=== PATIENT | female | born 1940 | race African-American/Black ===

== ENCOUNTER 2018-12-15 15:06 | Inpatient (IN) | payer MEDICARE, OTHER ==
[~2018-12-15] VITALS: Ht 152.4 cm; Wt 91.9 kg
[2018-12-16] VITALS: BP 189/71
--- OUTSIDE RECORDS SUMMARY | 2018-12-16 19:49 | XMS REPORT ---
[facility] Address Unknown Phone Unavailable Care Team Providers Care Sap Hana Architect Name Role Phone Unavailable Unavailable Payers Payer Name Policy Type Policy Number Effective Date Expiration Date Problems This patient has no known problems. Allergies, Adverse Reactions, Alerts Allergy Name Allergy Type Status Severity Reaction(s) Onset Date Inactive Date Treating Clinician Comments PARVIN Inhibitors DA Active U 2018-11-23 00:00:00 codeine DA Active U 2018-11-23 00:00:00 benazepril DA Active U 2018-11-23 00:00:00 diphenhydramine DA Active U 2018-11-23 00:00:00 PARVIN Inhibitors DA Active U 2017-11-11 00:00:00 codeine DA Active U 2017-11-11 00:00:00 hydrocodone DA Active U 2017-11-11 00:00:00 aspirin DA Active U 2017-11-11 00:00:00 ibuprofen DA Active U 2017-11-11 00:00:00 benazepril DA Active U 2017-11-11 00:00:00 benztropine DA Active U 2017-11-11 00:00:00 diphenhydramine DA Active U 2017-11-11 00:00:00 HYDROZAMIDE DA Active U 2013-09-14 00:00:00 Medications This patient has no known medications. Results Test Description Test Time Test Comments Text Results Atomic Results Result Comments GLUBED 2018-12-12 11:27:00 GLUBED (test code=GLUBED) 167 MG/DL 70-110 Performed by certified hasher machine operator at [facility] CBC W/AUTO [id number] 09:09:00* Test Item Value Reference Range Comments WHITE BLOOD CELL (test code=WBC) 5.24 x10 3/uL 4.5-11.0 RED BLOOD CELL (test code=RBC) 3.53 x10 6/uL 3.54-5.02 HEMOGLOBIN (test code=HGB) 9.9 g/dL 11.0-15.0 HEMATOCRIT (test code=HCT) 32.0 % 33.0-45.0 MEAN CELL VOLUME (test code=MCV) 90.7 fL 81.0-99.0 MEAN CELL HGB (test code=MCH) 28.0 pg 27.0-33.0 MEAN CELL HGB CONCETRATION (test code=MCHC) 30.9 g/dL 33.0-37.0 RED CELL DISTRIBUTION WIDTH CV (test code=RDW) 13.8 % 11.5-14.5 RED CELL DISTRIBUTION WIDTH SD (test code=RDW-SD) 45.3 fL 37.0-54.0 PLATELET COUNT (test code=PLT) 108 x10 3/uL 150-400 MEAN PLATELET VOLUME (test code=MPV) 12.8 fL 7.0-9.0 NEUTROPHIL % (test code=NT%) 37.2 % 56.0-77.0 IMMATURE GRANULOCYTE % (test code=IG%) 0.4 % 0.0-2.0 LYMPHOCYTE % (test code=LY%) 44.5 % 14.0-32.0 MONOCYTE % (test code=MO%) 12.2 % 4.8-9.0 EOSINOPHIL % (test code=EO%) 5.3 % 0.3-3.7 BASOPHIL % (test code=BA%) 0.4 % 0.0-2.0 NUCLEATED RBC % (test code=NRBC%) 0.0 % 0-0 NEUTROPHIL # (test code=NT#) 1.95 x10 3/uL 2.0-7.6 IMMATURE GRANULOCYTE # (test code=IG#) 0.02 x10 3/uL 0.00-0.03 LYMPHOCYTE # (test code=LY#) 2.33 x10 3/uL 1.0-3.8 MONOCYTE # (test code=MO#) 0.64 x10 3/uL 0.1-0.8 EOSINOPHIL # (test code=EO#) 0.28 x10 3/uL 0.0-0.2 BASOPHIL # (test code=BA#) 0.02 x10 3/uL 0.0-0.2 NUCLEATED RBC # (test code=NRBC#) 0.00 x10 3/uL 0.0-0.1 MANUAL DIFF REQUIRED (test code=MDIFF) NO RENAL FUNCTION [id number] 08:42:00* Test Item Value Reference Range Comments SODIUM (test code=NA) 139 mEq/L 134-147 POTASSIUM (test code=K) 4.2 mEq/L 3.4-5.0 CHLORIDE (test code=CL) 102 mEq/L 100-108 CARBON DIOXIDE (test code=CO2) 32 mEq/L 21-33 ANION GAP (test code=GAP) 9 0-20 GLUCOSE (test code=GLU) 192 mg/dL 70-110 BLOOD UREA NITROGEN (test code=BUN) 43 mg/dL 7-18 GLOMERULAR FILTRATION RATE (test code=GFR) 11.0 70-80 Units of measure=ml/min/1.73 m2 CREATININE (test code=CREAT) 4.7 mg/dL 0.6-1.3 ALBUMIN (test code=ALB) 2.70 g/dL 3.4-5.0 CALCIUM (test code=CA) 8.5 mg/dL 8.0-10.5 PHOSPHOROUS (test code=PHOS) 3.7 mg/dL 2.5-4.9 [id number] 07:49:00* Test Item Value Reference Range Comments GLUBED (test code=GLUBED) 185 MG/DL 70-110 Performed by certified hasher machine operator at [facility] [id number] 23:18:00* Test Item Value Reference Range Comments GLUBED (test code=GLUBED) 194 MG/DL 70-110 Performed by certified hasher machine operator at [facility] [id number] 22:03:00* Test Item Value Reference Range Comments GLUBED (test code=GLUBED) 170 MG/DL 70-110 Performed by certified hasher machine operator at [facility] [id number] 16:50:00* Test Item Value Reference Range Comments GLUBED (test code=GLUBED) 147 MG/DL 70-110 Performed by certified hasher machine operator at [facility] [id number] 16:29:00* Test Item Value Reference Range Comments GLUBED (test code=GLUBED) 143 MG/DL 70-110 Performed by certified hasher machine operator at [facility] [id number] 12:36:00* Test Item Value Reference Range Comments GLUBED (test code=GLUBED) 158 MG/DL 70-110 Performed by certified hasher machine operator at [facility] [id number] 08:32:00* Test Item Value Reference Range Comments GLUBED (test code=GLUBED) 174 MG/DL 70-110 Performed by certified hasher machine operator at [facility] BASIC METABOLIC [id number] 08:14:00* Test Item Value Reference Range Comments SODIUM (test code=NA) 137 mEq/L 134-147 POTASSIUM (test code=K) 4.4 mEq/L 3.4-5.0 CHLORIDE (test code=CL) 101 mEq/L 100-108 CARBON DIOXIDE (test code=CO2) 28 mEq/L 21-33 ANION GAP (test code=GAP) 12 0-20 GLUCOSE (test code=GLU) 175 mg/dL 70-110 BLOOD UREA NITROGEN (test code=BUN) 32 mg/dL 7-18 GLOMERULAR FILTRATION RATE (test code=GFR) 17.1 70-80 Units of measure=ml/min/1.73 m2 CREATININE (test code=CREAT) 3.2 mg/dL 0.6-1.3 CALCIUM (test code=CA) 8.9 mg/dL 8.0-10.5 CBC W/AUTO [id number] 07:48:00* Test Item Value Reference Range Comments WHITE BLOOD CELL (test code=WBC) 6.78 x10 3/uL 4.5-11.0 RED BLOOD CELL (test code=RBC) 4.16 x10 6/uL 3.54-5.02 HEMOGLOBIN (test code=HGB) 11.6 g/dL 11.0-15.0 HEMATOCRIT (test code=HCT) 38.8 % 33.0-45.0 MEAN CELL VOLUME (test code=MCV) 93.3 fL 81.0-99.0 MEAN CELL HGB (test code=MCH) 27.9 pg 27.0-33.0 MEAN CELL HGB CONCETRATION (test code=MCHC) 29.9 g/dL 33.0-37.0 RED CELL DISTRIBUTION WIDTH CV (test code=RDW) 13.8 % 11.5-14.5 RED CELL DISTRIBUTION WIDTH SD (test code=RDW-SD) 47.2 fL 37.0-54.0 PLATELET COUNT (test code=PLT) 103 x10 3/uL 150-400 MEAN PLATELET VOLUME (test code=MPV) 12.3 fL 7.0-9.0 NEUTROPHIL % (test code=NT%) 49.8 % 56.0-77.0 IMMATURE GRANULOCYTE % (test code=IG%) 0.3 % 0.0-2.0 LYMPHOCYTE % (test code=LY%) 32.4 % 14.0-32.0 MONOCYTE % (test code=MO%) 14.2 % 4.8-9.0 EOSINOPHIL % (test code=EO%) 2.9 % 0.3-3.7 BASOPHIL % (test code=BA%) 0.4 % 0.0-2.0 NUCLEATED RBC % (test code=NRBC%) 0.0 % 0-0 NEUTROPHIL # (test code=NT#) 3.37 x10 3/uL 2.0-7.6 IMMATURE GRANULOCYTE # (test code=IG#) 0.02 x10 3/uL 0.00-0.03 LYMPHOCYTE # (test code=LY#) 2.20 x10 3/uL 1.0-3.8 MONOCYTE # (test code=MO#) 0.96 x10 3/uL 0.1-0.8 EOSINOPHIL # (test code=EO#) 0.20 x10 3/uL 0.0-0.2 BASOPHIL # (test code=BA#) 0.03 x10 3/uL 0.0-0.2 NUCLEATED RBC # (test code=NRBC#) 0.00 x10 3/uL 0.0-0.1 MANUAL DIFF REQUIRED (test code=MDIFF) NO PROTHROMBIN [id number] 06:52:00* Test Item Value Reference Range Comments PROTHROMBIN TIME PATIENT (test code=PTP) 16.1 SECONDS 9.3-12.9 INTERNATIONAL NORMAL RATIO (test code=INR) 1.4 0.8-1.2 TARGET INR BY INDICATION Indication INR1. Prophylaxis of venous thrombosis 2.0 - 3.0 (orthopedic surgery), Prophylaxis of venous thrombosis (other than high-risk surgery), Treatment of Deep Vein Thrombosis/Pulmonary Embolism, Prevention of systemic embolism - Tissue heart valves, Acute Myocardial Infarction (to prevent systemic embolism), Valvular heart disease, Atrial Fibrillation, Bileaflet mechanical valve in aortic position.2. Mechanical prosthetic valves (high risk), 2.5 - 3.5 Presence of Lupus Anticoagulant or Antiphospholipid Antibodies, Prevention of systemic embolism - Acute Myocardial Infarction (to prevent recurrent infarct). THROMBOPLASTIN TIME [id number] 06:52:00* Test Item Value Reference Range Comments THROMBOPLASTIN TIME PARTIAL (test code=PTT) 32.7 Seconds 25.0-39.5 Therapeutic Range: 50.4 - 88.3 Seconds Effective 09/09/2018 [id number] 22:41:00* Test Item Value Reference Range Comments GLUBED (test code=GLUBED) 160 MG/DL 70-110 Performed by certified hasher machine operator at [facility] [id number] 22:02:00* Test Item Value Reference Range Comments GLUBED (test code=GLUBED) 239 MG/DL 70-110 Performed by certified hasher machine operator at [facility] [id number] 17:42:00* Test Item Value Reference Range Comments GLUBED (test code=GLUBED) 165 MG/DL 70-110 Performed by certified hasher machine operator at [facility] CBC W/AUTO [id number] 09:25:00* Test Item Value Reference Range Comments WHITE BLOOD CELL (test code=WBC) 5.75 x10 3/uL 4.5-11.0 RED BLOOD CELL (test code=RBC) 3.81 x10 6/uL 3.54-5.02 HEMOGLOBIN (test code=HGB) 10.7 g/dL 11.0-15.0 HEMATOCRIT (test code=HCT) 34.9 % 33.0-45.0 MEAN CELL VOLUME (test code=MCV) 91.6 fL 81.0-99.0 MEAN CELL HGB (test code=MCH) 28.1 pg 27.0-33.0 MEAN CELL HGB CONCETRATION (test code=MCHC) 30.7 g/dL 33.0-37.0 RED CELL DISTRIBUTION WIDTH CV (test code=RDW) 13.7 % 11.5-14.5 RED CELL DISTRIBUTION WIDTH SD (test code=RDW-SD) 46.2 fL 37.0-54.0 PLATELET COUNT (test code=PLT) 102 x10 3/uL 150-400 MEAN PLATELET VOLUME (test code=MPV) 12.3 fL 7.0-9.0 NEUTROPHIL % (test code=NT%) 43.2 % 56.0-77.0 IMMATURE GRANULOCYTE % (test code=IG%) 0.2 % 0.0-2.0 LYMPHOCYTE % (test code=LY%) 40.0 % 14.0-32.0 MONOCYTE % (test code=MO%) 12.5 % 4.8-9.0 EOSINOPHIL % (test code=EO%) 3.8 % 0.3-3.7 BASOPHIL % (test code=BA%) 0.3 % 0.0-2.0 NUCLEATED RBC % (test code=NRBC%) 0.0 % 0-0 NEUTROPHIL # (test code=NT#) 2.48 x10 3/uL 2.0-7.6 IMMATURE GRANULOCYTE # (test code=IG#) 0.01 x10 3/uL 0.00-0.03 LYMPHOCYTE # (test code=LY#) 2.30 x10 3/uL 1.0-3.8 MONOCYTE # (test code=MO#) 0.72 x10 3/uL 0.1-0.8 EOSINOPHIL # (test code=EO#) 0.22 x10 3/uL 0.0-0.2 BASOPHIL # (test code=BA#) 0.02 x10 3/uL 0.0-0.2 NUCLEATED RBC # (test code=NRBC#) 0.00 x10 3/uL 0.0-0.1 MANUAL DIFF REQUIRED (test code=MDIFF) NO [id number] 08:48:00* Test Item Value Reference Range Comments GLUBED (test code=GLUBED) 165 MG/DL 70-110 Performed by certified hasher machine operator at [facility] RENAL FUNCTION [id number] 08:01:00* Test Item Value Reference Range Comments SODIUM (test code=NA) 140 mEq/L 134-147 POTASSIUM (test code=K) 4.5 mEq/L 3.4-5.0 CHLORIDE (test code=CL) 103 mEq/L 100-108 CARBON DIOXIDE (test code=CO2) 29 mEq/L 21-33 ANION GAP (test code=GAP) 13 0-20 GLUCOSE (test code=GLU) 176 mg/dL 70-110 BLOOD UREA NITROGEN (test code=BUN) 57 mg/dL 7-18 GLOMERULAR FILTRATION RATE (test code=GFR) 12.5 70-80 Units of measure=ml/min/1.73 m2 CREATININE (test code=CREAT) 4.2 mg/dL 0.6-1.3 ALBUMIN (test code=ALB) 2.60 g/dL 3.4-5.0 CALCIUM (test code=CA) 8.3 mg/dL 8.0-10.5 PHOSPHOROUS (test code=PHOS) 3.4 mg/dL 2.5-4.9 [id number] 16:33:00* Test Item Value Reference Range Comments GLUBED (test code=GLUBED) 268 MG/DL 70-110 Performed by certified hasher machine operator at [facility] [id number] 14:58:00* Test Item Value Reference Range Comments GLUBED (test code=GLUBED) 252 MG/DL 70-110 Performed by certified hasher machine operator at [facility] [id number] 12:20:00* Test Item Value Reference Range Comments GLUBED (test code=GLUBED) 253 MG/DL 70-110 Performed by certified hasher machine operator at [facility] [id number] 08:38:00* Test Item Value Reference Range Comments GLUBED (test code=GLUBED) 154 MG/DL 70-110 Performed by certified hasher machine operator at [facility] [id number] 20:43:00* Test Item Value Reference Range Comments GLUBED (test code=GLUBED) 242 MG/DL 70-110 Performed by certified hasher machine operator at [facility] [id number] 17:57:00* Test Item Value Reference Range Comments GLUBED (test code=GLUBED) 146 MG/DL 70-110 Performed by certified hasher machine operator at [facility] RENAL FUNCTION [id number] 08:58:00* Test Item Value Reference Range Comments SODIUM (test code=NA) 139 mEq/L 134-147 POTASSIUM (test code=K) 4.6 mEq/L 3.4-5.0 CHLORIDE (test code=CL) 106 mEq/L 100-108 CARBON DIOXIDE (test code=CO2) 28 mEq/L 21-33 ANION GAP (test code=GAP) 10 0-20 GLUCOSE (test code=GLU) 133 mg/dL 70-110 BLOOD UREA NITROGEN (test code=BUN) 70 mg/dL 7-18 GLOMERULAR FILTRATION RATE (test code=GFR) 12.8 70-80 Units of measure=ml/min/1.73 m2 CREATININE (test code=CREAT) 4.1 mg/dL 0.6-1.3 ALBUMIN (test code=ALB) 2.70 g/dL 3.4-5.0 CALCIUM (test code=CA) 8.6 mg/dL 8.0-10.5 PHOSPHOROUS (test code=PHOS) 3.5 mg/dL 2.5-4.9 CBC W/AUTO [id number] 07:17:00* Test Item Value Reference Range Comments WHITE BLOOD CELL (test code=WBC) 7.06 x10 3/uL 4.5-11.0 RED BLOOD CELL (test code=RBC) 4.04 x10 6/uL 3.54-5.02 HEMOGLOBIN (test code=HGB) 11.2 g/dL 11.0-15.0 HEMATOCRIT (test code=HCT) 37.0 % 33.0-45.0 MEAN CELL VOLUME (test code=MCV) 91.6 fL 81.0-99.0 MEAN CELL HGB (test code=MCH) 27.7 pg 27.0-33.0 MEAN CELL HGB CONCETRATION (test code=MCHC) 30.3 g/dL 33.0-37.0 RED CELL DISTRIBUTION WIDTH CV (test code=RDW) 13.8 % 11.5-14.5 RED CELL DISTRIBUTION WIDTH SD (test code=RDW-SD) 46.5 fL 37.0-54.0 PLATELET COUNT (test code=PLT) 114 x10 3/uL 150-400 MEAN PLATELET VOLUME (test code=MPV) 12.6 fL 7.0-9.0 NEUTROPHIL % (test code=NT%) 49.5 % 56.0-77.0 IMMATURE GRANULOCYTE % (test code=IG%) 0.1 % 0.0-2.0 LYMPHOCYTE % (test code=LY%) 34.4 % 14.0-32.0 MONOCYTE % (test code=MO%) 12.5 % 4.8-9.0 EOSINOPHIL % (test code=EO%) 3.1 % 0.3-3.7 BASOPHIL % (test code=BA%) 0.4 % 0.0-2.0 NUCLEATED RBC % (test code=NRBC%) 0.0 % 0-0 NEUTROPHIL # (test code=NT#) 3.49 x10 3/uL 2.0-7.6 IMMATURE GRANULOCYTE # (test code=IG#) 0.01 x10 3/uL 0.00-0.03 LYMPHOCYTE # (test code=LY#) 2.43 x10 3/uL 1.0-3.8 MONOCYTE # (test code=MO#) 0.88 x10 3/uL 0.1-0.8 EOSINOPHIL # (test code=EO#) 0.22 x10 3/uL 0.0-0.2 BASOPHIL # (test code=BA#) 0.03 x10 3/uL 0.0-0.2 NUCLEATED RBC # (test code=NRBC#) 0.00 x10 3/uL 0.0-0.1 MANUAL DIFF REQUIRED (test code=MDIFF) NO [id number] 04:55:00* Test Item Value Reference Range Comments GLUBED (test code=GLUBED) 230 MG/DL 70-110 Performed by certified hasher machine operator at [facility] [id number] 01:30:00* Test Item Value Reference Range Comments GLUBED (test code=GLUBED) 209 MG/DL 70-110 Performed by certified hasher machine operator at [facility] [id number] 19:55:00* Test Item Value Reference Range Comments GLUBED (test code=GLUBED) 170 MG/DL 70-110 Performed by certified hasher machine operator at [facility] [id number] 18:41:00* Test Item Value Reference Range Comments GLUBED (test code=GLUBED) 124 MG/DL 70-110 Performed by certified hasher machine operator at [facility] [id number] 12:51:00* Test Item Value Reference Range Comments GLUBED (test code=GLUBED) 195 MG/DL 70-110 Performed by certified hasher machine operator at [facility] [id number] 12:51:00* Test Item Value Reference Range Comments GLUBED (test code=GLUBED) 164 MG/DL 70-110 Performed by certified hasher machine operator at [facility] [id number] 18:49:00* Test Item Value Reference Range Comments GLUBED (test code=GLUBED) 109 MG/DL 70-110 Performed by certified hasher machine operator at [facility] [id number] 14:03:00* Test Item Value Reference Range Comments GLUBED (test code=GLUBED) 221 MG/DL 70-110 Performed by certified hasher machine operator at [facility] URINALYSIS [id number] 17:52:00* Test Item Value Reference Range Comments UA COLOR (test code=COLU) YELLOW YEL/STRAW UA APPEARANCE (test code=APPU) CLOUDY CLEAR UA GLUCOSE DIPSTICK (test code=DGLUU) NEGATIVE NEGATIVE UA BILIRUBIN DIPSTICK (test code=BILU) NEGATIVE NEGATIVE UA KETONE DIPSTICK (test code=KETU) NEGATIVE NEGATIVE UA SPECIFIC GRAVITY (test code=SGU) 1.009 1.005-1.030 UA BLOOD DIPSTICK (test code=REJI) 1+ NEGATIVE UA PH DIPSTICK (test code=SANJU) 7.0 5.0-7.0 UA PROTEIN DIPSTICK (test code=PROU) 2+ NEGATIVE UA UROBILINIOGEN DIPSTICK (test code=URO) 0.2 mg/dL 0.2-1.0 UA NITRITE DIPSTICK (test code=THOR) NEGATIVE NEGATIVE UA LEUKOCYTE ESTERASE DIPSTICK (test code=LEUU) 3+ NEGATIVE UA WBC (test code=WBCU) >50 WBC/HPF 0-3 UA RBC (test code=RBCU) >50 RBC/HPF 0-3 UA BACTERIA (test code=BACU) TRACE /HPF NONE SEEN UA SQUAMOUS CELLS (test code=SQU) 6-10 /HPF NONE SEEN UA YEAST (BUDDING) (test code=YEASTUBD) 3+ /HPF NONE [id number] 16:01:00* Test Item Value Reference Range Comments AMMONIA (test code=AMM) < 10 umol/L 0-35 PROCALCITONIN (PCT)2018-12-05 15:31:00* Test Item Value Reference Range Comments PROCALCITONIN (PCT) (test code=PROCAL) < 0.05 ng/mL 0.00-0.05 PROCALCITONIN (PCT) NORMAL RANGE (ADULT): <0.05 NG/ML. * a concentration <0.5 ng/mL represents a low risk of severe sepsis and/or septic shock.* a concentration >2 ng/mL represents a high risk of severe sepsis and/or septic shock.Nevertheless, concentrations <0.5 ng/mL do not exclude aninfection, on account of localized infections (withoutsystemic signs) which can be associated with such lowconcentrations, or a systemic infection in its initialstages (< 6 hours). Furthermore, increased procalcitonincan occur without infection. PCT concentrations between 0.5and 2.0 ng/mL should be interpreted taking into account thepatient's history. It is recommended to retest PCT within6-24 hours if any concentrations <2 ng/mL are obtained. - CT HEAD/BRAIN W/O [id number] 14:44:00 Name: MARK WALLACE [facility] : 1940 Age/S: 77 / F [address] [place] [address] Unit #: [id number] Loc: [place] [address] Phys: Marquis Jaimes MD Acct: [id number] Dis Date: Status: REG ER PHONE #: [phone] Exam Date: 12/05/2018 1428 FAX #: [phone] Reason: Altered Mental Status EXAMS: CPT CODE: [id number] CT HEAD/BRAIN W/O CONT 58424 STUDY: - CT HEAD/BRAIN W/O CONT 12/05/2018 1:07 PM Ordering Physician: Marquis Jaimes MD Patient Name: MARK WALLACE MR: [id number] : 1940; Age: 77 years y/o Female Clinical Indication: Acute encephalopathy, Altered Mental Status Comparison: November 23, 2018 CT TECHNIQUE: Multiple contiguous transaxial noncontrast CT images were obtained through the head. Coronal and sagittal reformatted images were prepared. DOSE: CT imaging performed at this location utilizes radiation dose optimization technique which includes one or more of the followin) Automated exposure control; 2) Adjustment of the mA and/or kV according to patient's size; 3) Use of iterative reconstruction techniques. DLP (mGy-cm): 419 FINDINGS: BRAIN PARENCHYMA: The brain volume is appropriate for age. Confluent and scattered hypodensities in the supratentorial white matter likely reflect chronic small vessel ischemic changes. Gliosis in the left occipital lobe cuneus No e vidence of acute intracranial hemorrhage, mass lesion, mass effect, midlin e shift, or extra-axial fluid collection. VENTRICLES: The lateral ventricles, third ventricle, fourth ventricle, and basilar cisterns are ap propriate for degree of atrophy present. PARANASAL SINUSES: The vi sualized portions of the paranasal sinuses are clear. MASTOI DS: Clear. ORBITS: The visualized portions of the orbits are rosario l. Bilateral lens prostheses. SOFT TISSUES: No significant abnormality. SKULL: No acute fracture or suspicious osseous lesion . PAGE 1 Signed Report (CONTINUED) Name: MARK WALLACE [facility] B: 1940 Age/S: 77 / F [address] [place] [address] Unit #: [id number] Loc: [place] [address] Phys: Maninder Jaimes MD Acct: [id number] D is Date: Status: REG ER PHONE #: [phone] Exam Date: 12/05/2018 1428 FAX #: [phone] Reason: Altered Mental Status EXAMS: CPT CODE: [id number] CT HEAD/BRAIN W/O CONT 19754 <Continued> IMPRESSION: No acute intracranial abnormality. 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 Severe chronic small vessel ischemic changes in the supratentorial white matter SL: [id number] at 1444 Reported and signed by: Nabor Knight M.D. CC: Marquis Jaimes MD Technologist:RT Danyelle(R) CTDI: DLP: Trnscb Date/Time: 12/05/2018 (1444) [id number] Orig Print D/T: S: 12/05/2018 (8591) PAGE 2 Signed Report HEPATIC FUNCTION [id number] 14:20:00* Test Item Value Reference Range Comments TOTAL PROTEIN (test code=PROT) 7.5 g/dL 6.4-8.2 ALBUMIN (test code=ALB) 3.10 g/dL 3.4-5.0 BILIRUBIN TOTAL (test code=BILT) 0.40 mg/dL 0.0-1.0 BILIRUBIN DIRECT (test code=BILD) < 0.10 MG/DL 0.0-0.30 BILIRUBIN INDIRECT (test code=BILIND) 0.30 MG/DL SGOT/AST (test code=AST) 24 IUnit/L 15-37 SGPT/ALT (test code=ALT) 7 IUnit/L 15-65 ALKALINE PHOSPHATASE TOTAL (test code=ALKP) 89 IUnit/L 20-125 - XR CHEST 1 [id number] 14:02:00 FAX: Marquis Jaimes MD [phone] [place]: St: REG Name: MARK MIGUEL [facility] : [birth year] Age/S: 77/F [address] [place] [address] Unit #: [id number] Loc: [place] [address] Phys: Marquis Jaimes MD Acct: [id number] Dis Date: Status: REG ER PHONE #: [phone] Exam Date: 12/05/2018 5776 FAX #: [phone] Reason: Altered Mental Status EXAMS: CPT CODE: [id number] XR CHEST 1 V 81586 CHEST 1 VIEW: 12/05/2018 COMPARISON: November 23, 2018 CLINICAL HISTORY: Altered Mental Status FINDINGS: Median sternotomy wires and mediastinal clips are pr esent. Cardiac silhouette is stable in size. Lung volumes ar e low. When compared with the prior study, the pulmonary interstitial sandra ings appear slightly more prominent. No focal consolidation noted. No pneumothorax is seen. GI contrast is identified within t he splenic flexure region of the colon. Vascular stent is no tu in the left axillary region. IMPRESSION: Expiratory chest with mild interstitial prominence. This may be due to p oor degree of inspiration. Early changes of interstitial edema/interstit ial pneumonitis cannot entirely be excluded. at 1402 Reported and s igned by: Ever Collins M.D. CC: Marquis Jaimes MD Technologist: Skye Damon, RT(R); Ana EscobarRT (R) Trnscrd Date/Time/By: 12/05/2018 (5992) : By: [email or web address] Or ig Print D/T: S: 12/05/2018 (4003) PAGE 1 Signed Report TROPONIN-I [id number] 13:48:00* Test Item Value Reference Range Comments TROPONIN-I RAPID (test code=TROPIRAP) 0.00 ng/mL 0.00-0.08 Performed by certified hasher machine operator at [facility] Negative: <=0.08 Positive: >=0.09An elevated troponin value alone is not sufficient todiagnose a myocardial infarction. Rather, the patient sclinical presentation (history, physical exam) and ECGshould be used in conjunction with troponin in thediagnostic evaluation of suspected myocardial infarction. Aserial sampling protocol is recommended to facilitate the identification of temporal changes in troponin levels characteristic of SC. CBC W/AUTO [id number] 13:46:00* Test Item Value Reference Range Comments WHITE BLOOD CELL (test code=WBC) 6.02 x10 3/uL 4.5-11.0 RED BLOOD CELL (test code=RBC) 4.18 x10 6/uL 3.54-5.02 HEMOGLOBIN (test code=HGB) 11.7 g/dL 11.0-15.0 HEMATOCRIT (test code=HCT) 37.7 % 33.0-45.0 MEAN CELL VOLUME (test code=MCV) 90.2 fL 81.0-99.0 MEAN CELL HGB (test code=MCH) 28.0 pg 27.0-33.0 MEAN CELL HGB CONCETRATION (test code=MCHC) 31.0 g/dL 33.0-37.0 RED CELL DISTRIBUTION WIDTH CV (test code=RDW) 13.5 % 11.5-14.5 RED CELL DISTRIBUTION WIDTH SD (test code=RDW-SD) 44.6 fL 37.0-54.0 PLATELET COUNT (test code=PLT) 107 x10 3/uL 150-400 IMMATURE PLATELET FRACTION (test code=IPF) 9.8 % 0.9-11.2 MEAN PLATELET VOLUME (test code=MPV) 13.4 fL 7.0-9.0 NEUTROPHIL % (test code=NT%) 65.6 % 56.0-77.0 IMMATURE GRANULOCYTE % (test code=IG%) 0.2 % 0.0-2.0 LYMPHOCYTE % (test code=LY%) 22.1 % 14.0-32.0 MONOCYTE % (test code=MO%) 10.0 % 4.8-9.0 EOSINOPHIL % (test code=EO%) 1.8 % 0.3-3.7 BASOPHIL % (test code=BA%) 0.3 % 0.0-2.0 NUCLEATED RBC % (test code=NRBC%) 0.0 % 0-0 NEUTROPHIL # (test code=NT#) 3.95 x10 3/uL 2.0-7.6 IMMATURE GRANULOCYTE # (test code=IG#) 0.01 x10 3/uL 0.00-0.03 LYMPHOCYTE # (test code=LY#) 1.33 x10 3/uL 1.0-3.8 MONOCYTE # (test code=MO#) 0.60 x10 3/uL 0.1-0.8 EOSINOPHIL # (test code=EO#) 0.11 x10 3/uL 0.0-0.2 BASOPHIL # (test code=BA#) 0.02 x10 3/uL 0.0-0.2 NUCLEATED RBC # (test code=NRBC#) 0.00 x10 3/uL 0.0-0.1 MANUAL DIFF REQUIRED (test code=MDIFF) NO LACTIC ACID [id number] 13:42:00* Test Item Value Reference Range Comments LACTIC ACID POC (test code=LACTP) 1.3 MMOL/L 0.90-1.70 Performed by certified hasher machine operator at [facility] [id number] 18:18:00* Test Item Value Reference Range Comments GLUBED (test code=GLUBED) 168 MG/DL 70-110 Performed by certified hasher machine operator at [facility] [id number] 12:21:00* Test Item Value Reference Range Comments GLUBED (test code=GLUBED) 189 MG/DL 70-110 Performed by certified hasher machine operator at [facility] [id number] 07:53:00* Test Item Value Reference Range Comments GLUBED (test code=GLUBED) 118 MG/DL 70-110 Performed by certified hasher machine operator at [facility] [id number] 21:22:00* Test Item Value Reference Range Comments GLUBED (test code=GLUBED) 312 MG/DL 70-110 Performed by certified hasher machine operator at [facility] [id number] 18:04:00* Test Item Value Reference Range Comments GLUBED (test code=GLUBED) 199 MG/DL 70-110 Performed by certified hasher machine operator at [facility] [id number] 11:50:00* Test Item Value Reference Range Comments GLUBED (test code=GLUBED) 187 MG/DL 70-110 Performed by certified hasher machine operator at [facility] [id number] 08:02:00* Test Item Value Reference Range Comments GLUBED (test code=GLUBED) 140 MG/DL 70-110 Performed by certified hasher machine operator at [facility] [id number] 20:43:00* Test Item Value Reference Range Comments GLUBED (test code=GLUBED) 195 MG/DL 70-110 Performed by certified hasher machine operator at [facility] [id number] 16:53:00* Test Item Value Reference Range Comments GLUBED (test code=GLUBED) 162 MG/DL 70-110 Performed by certified hasher machine operator at [facility] - XR SWLW FUNC W/C [id number] 15:05:00 FAX: Michelle Calderon DO [phone] [place]: St: ADM FAX: Fredi Teresa MD [phone] [facility] [place] [facility] 1940 Age/S: 77/F [address] [place] [address] Unit #: [id number] Loc: G.6625 [place] [address] Phys: Fredi Goff MD Acct: [id number] Dis Date: Status: ADM IN PHONE #: [phone] Exam Date: 11/26/2018 1442 FAX #: [phone] Reason: Dysphagia EXAMS: CPT CODE: [id number] XR SWLW FUNC W/C V 68048 PROCEDURE: MODIFIED BARIUM SWALLOW INDICATION: 77- year-old female with dysphasia COMPARISON: None. KERA HNIQUE: Fluoroscopy was provided for modified barium swallow performed by speech therapy. The patient was administered various consistencies of liq uid barium and barium coated foods by mouth. FLUORO TIME: 59 secon ds REFERENCE AIR KERMA: 3.09 mGy FINDINGS: Vallecular poolin g noted with all consistencies. Laryngeal penetration noted with thin and nectar consistencies. No yao aspiration. No cough with penetration. IMPRESSION: 1. Laryngeal penetration with thin and nectar consistencies without cough. 2. The reader is referred to dedicated speech therapy report for details. SL: [id number] Electronically Signed by Brandee Vaca on 0 11/26/2018 at 1506 Reported and signed by: Sal Smith CC: Michelle Peacock DO; Fredi Goff MD Techn ologist: Mohit Hightower, RT(R) Trnscrd Date/Ez e/By: 11/26/2018 (1509) : By: [email or web address] Orig Print D/T: S: 11/26/2018 (150) PAGE 1 Signed Report [id number] 13:16:00* Test Item Value Reference Range Comments GLUBED (test code=GLUBED) 185 MG/DL 70-110 Performed by certified hasher machine operator at [facility] RENAL FUNCTION [id number] 10:41:00* Test Item Value Reference Range Comments SODIUM (test code=NA) 138 mEq/L 134-147 POTASSIUM (test code=K) 4.1 mEq/L 3.4-5.0 CHLORIDE (test code=CL) 103 mEq/L 100-108 CARBON DIOXIDE (test code=CO2) 30 mEq/L 21-33 ANION GAP (test code=GAP) 9 0-20 GLUCOSE (test code=GLU) 144 mg/dL 70-110 BLOOD UREA NITROGEN (test code=BUN) 57 mg/dL 7-18 GLOMERULAR FILTRATION RATE (test code=GFR) 14.9 70-80 Units of measure=ml/min/1.73 m2 CREATININE (test code=CREAT) 3.6 mg/dL 0.6-1.3 ALBUMIN (test code=ALB) 3.20 g/dL 3.4-5.0 CALCIUM (test code=CA) 8.0 mg/dL 8.0-10.5 PHOSPHOROUS (test code=PHOS) 3.5 mg/dL 2.5-4.9 CBC W/AUTO [id number] 10:33:00* Test Item Value Reference Range Comments WHITE BLOOD CELL (test code=WBC) 5.50 x10 3/uL 4.5-11.0 RED BLOOD CELL (test code=RBC) 4.38 x10 6/uL 3.54-5.02 HEMOGLOBIN (test code=HGB) 12.1 g/dL 11.0-15.0 HEMATOCRIT (test code=HCT) 38.9 % 33.0-45.0 MEAN CELL VOLUME (test code=MCV) 88.8 fL 81.0-99.0 MEAN CELL HGB (test code=MCH) 27.6 pg 27.0-33.0 MEAN CELL HGB CONCETRATION (test code=MCHC) 31.1 g/dL 33.0-37.0 RED CELL DISTRIBUTION WIDTH CV (test code=RDW) 14.9 % 11.5-14.5 RED CELL DISTRIBUTION WIDTH SD (test code=RDW-SD) 49.1 fL 37.0-54.0 PLATELET COUNT (test code=PLT) 120 x10 3/uL 150-400 IMMATURE PLATELET FRACTION (test code=IPF) 8.7 % 0.9-11.2 MEAN PLATELET VOLUME (test code=MPV) 13.5 fL 7.0-9.0 NEUTROPHIL % (test code=NT%) 45.6 % 56.0-77.0 IMMATURE GRANULOCYTE % (test code=IG%) 0.2 % 0.0-2.0 LYMPHOCYTE % (test code=LY%) 39.5 % 14.0-32.0 MONOCYTE % (test code=MO%) 10.9 % 4.8-9.0 EOSINOPHIL % (test code=EO%) 3.3 % 0.3-3.7 BASOPHIL % (test code=BA%) 0.5 % 0.0-2.0 NUCLEATED RBC % (test code=NRBC%) 0.0 % 0-0 NEUTROPHIL # (test code=NT#) 2.51 x10 3/uL 2.0-7.6 IMMATURE GRANULOCYTE # (test code=IG#) 0.01 x10 3/uL 0.00-0.03 LYMPHOCYTE # (test code=LY#) 2.17 x10 3/uL 1.0-3.8 MONOCYTE # (test code=MO#) 0.60 x10 3/uL 0.1-0.8 EOSINOPHIL # (test code=EO#) 0.18 x10 3/uL 0.0-0.2 BASOPHIL # (test code=BA#) 0.03 x10 3/uL 0.0-0.2 NUCLEATED RBC # (test code=NRBC#) 0.00 x10 3/uL 0.0-0.1 MANUAL DIFF REQUIRED (test code=MDIFF) NO [id number] 09:50:00* Test Item Value Reference Range Comments GLUBED (test code=GLUBED) 143 MG/DL 70-110 Performed by certified hasher machine operator at [facility] ACUTE HEPATITIS [id number] 05:08:00* Test Item Value Reference Range Comments AB HEPATITIS A IGM (test code=HAVMAB) NON REACTIVE INDEX NON REACT. AG HEPATITIS B SURFACE (test code=HBSAG) NON REACTIVE INDEX NonReactive AB HEPATITIS B CORE IGM (test code=HBCMAB) NON REACTIVE INDEX NON REACT. AB HEPATITIS C (test code=HCVAB) NON REACTIVE INDEX NON REACT. AB HEPATITIS B [id number] 05:08:00* Test Item Value Reference Range Comments AB HEPATITIS B SURFACE (test code=HBSAB) < 3.1 mIU/mL Immunity>9.9 Status of Immunity Anti-HBs Level Inconsistent with Immunity 0.0 - 9.9Consistent with Immunity >9.9Performed At: [facility] [address] [place], [place] [id number] Kyle L MD Ph:[phone] [id number] 20:20:00* Test Item Value Reference Range Comments GLUBED (test code=GLUBED) 243 MG/DL 70-110 Performed by certified hasher machine operator at [facility] [id number] 16:55:00* Test Item Value Reference Range Comments GLUBED (test code=GLUBED) 221 MG/DL 70-110 Performed by certified hasher machine operator at [facility] [id number] 08:38:00* Test Item Value Reference Range Comments GLUBED (test code=GLUBED) 151 MG/DL 70-110 Performed by certified hasher machine operator at [facility] ACUTE HEPATITIS [id number] 01:34:00* Test Item Value Reference Range Comments AB HEPATITIS A IGM (test code=HAVMAB) NON REACTIVE INDEX NON REACT. AG HEPATITIS B SURFACE (test code=HBSAG) NON REACTIVE INDEX NonReactive AB HEPATITIS B CORE IGM (test code=HBCMAB) NON REACTIVE INDEX NON REACT. AB HEPATITIS C (test code=HCVAB) NON REACTIVE INDEX NON REACT. AB HEPATITIS B [id number] 01:34:00* Test Item Value Reference Range Comments AB HEPATITIS B SURFACE (test code=HBSAB) [id number] 22:28:00* Test Item Value Reference Range Comments GLUBED (test code=GLUBED) 145 MG/DL 70-110 Performed by certified hasher machine operator at [facility] [id number] 17:04:00* Test Item Value Reference Range Comments GLUBED (test code=GLUBED) 167 MG/DL 70-110 Performed by certified hasher machine operator at [facility] URINALYSIS [id number] 15:49:00* Test Item Value Reference Range Comments UA COLOR (test code=COLU) YELLOW YEL/STRAW UA APPEARANCE (test code=APPU) TURBID CLEAR UA GLUCOSE DIPSTICK (test code=DGLUU) NEGATIVE NEGATIVE UA BILIRUBIN DIPSTICK (test code=BILU) NEGATIVE NEGATIVE UA KETONE DIPSTICK (test code=KETU) NEGATIVE NEGATIVE UA SPECIFIC GRAVITY (test code=SGU) 1.012 1.005-1.030 UA BLOOD DIPSTICK (test code=REJI) 2+ NEGATIVE UA PH DIPSTICK (test code=SANJU) 5.0 5.0-7.0 UA PROTEIN DIPSTICK (test code=PROU) 2+ NEGATIVE UA UROBILINIOGEN DIPSTICK (test code=URO) 0.2 mg/dL 0.2-1.0 UA NITRITE DIPSTICK (test code=THOR) NEGATIVE NEGATIVE UA LEUKOCYTE ESTERASE DIPSTICK (test code=LEUU) 2+ NEGATIVE UA WBC (test code=WBCU) >50 WBC/HPF 0-3 UA RBC (test code=RBCU) >50 RBC/HPF 0-3 UA BACTERIA (test code=BACU) 4+ /HPF NONE SEEN UA SQUAMOUS CELLS (test code=SQU) 26-35 /HPF NONE SEEN UA AMORPHOUS SEDIMENT (test code=AMORU) 2+ /HPF NONE [id number] 12:33:00* Test Item Value Reference Range Comments GLUBED (test code=GLUBED) 174 MG/DL 70-110 Performed by certified hasher machine operator at [facility] [id number] 08:16:00* Test Item Value Reference Range Comments GLUBED (test code=GLUBED) 158 MG/DL 70-110 Performed by certified hasher machine operator at [facility] COMPREHENSIVE METABOLIC [id number] 08:10:00* Test Item Value Reference Range Comments SODIUM (test code=NA) 137 mEq/L 134-147 POTASSIUM (test code=K) 4.4 mEq/L 3.4-5.0 CHLORIDE (test code=CL) 103 mEq/L 100-108 CARBON DIOXIDE (test code=CO2) 27 mEq/L 21-33 ANION GAP (test code=GAP) 11 0-20 GLUCOSE (test code=GLU) 144 mg/dL 70-110 BLOOD UREA NITROGEN (test code=BUN) 72 mg/dL 7-18 GLOMERULAR FILTRATION RATE (test code=GFR) 14.5 70-80 Units of measure=ml/min/1.73 m2 CREATININE (test code=CREAT) 3.7 mg/dL 0.6-1.3 TOTAL PROTEIN (test code=PROT) 6.7 g/dL 6.4-8.2 ALBUMIN (test code=ALB) 2.80 g/dL 3.4-5.0 CALCIUM (test code=CA) 8.4 mg/dL 8.0-10.5 BILIRUBIN TOTAL (test code=BILT) 0.40 mg/dL 0.0-1.0 SGOT/AST (test code=AST) 13 IUnit/L 15-37 SGPT/ALT (test code=ALT) 6 IUnit/L 15-65 ALKALINE PHOSPHATASE TOTAL (test code=ALKP) 87 IUnit/L 20-125 CBC W/AUTO [id number] 07:38:00* Test Item Value Reference Range Comments WHITE BLOOD CELL (test code=WBC) 4.82 x10 3/uL 4.5-11.0 RED BLOOD CELL (test code=RBC) 4.03 x10 6/uL 3.54-5.02 HEMOGLOBIN (test code=HGB) 11.2 g/dL 11.0-15.0 HEMATOCRIT (test code=HCT) 36.3 % 33.0-45.0 MEAN CELL VOLUME (test code=MCV) 90.1 fL 81.0-99.0 MEAN CELL HGB (test code=MCH) 27.8 pg 27.0-33.0 MEAN CELL HGB CONCETRATION (test code=MCHC) 30.9 g/dL 33.0-37.0 RED CELL DISTRIBUTION WIDTH CV (test code=RDW) 15.1 % 11.5-14.5 RED CELL DISTRIBUTION WIDTH SD (test code=RDW-SD) 50.1 fL 37.0-54.0 PLATELET COUNT (test code=PLT) 124 x10 3/uL 150-400 MEAN PLATELET VOLUME (test code=MPV) 12.6 fL 7.0-9.0 NEUTROPHIL % (test code=NT%) 36.3 % 56.0-77.0 IMMATURE GRANULOCYTE % (test code=IG%) 0.2 % 0.0-2.0 LYMPHOCYTE % (test code=LY%) 46.5 % 14.0-32.0 MONOCYTE % (test code=MO%) 11.8 % 4.8-9.0 EOSINOPHIL % (test code=EO%) 4.4 % 0.3-3.7 BASOPHIL % (test code=BA%) 0.8 % 0.0-2.0 NUCLEATED RBC % (test code=NRBC%) 0.0 % 0-0 NEUTROPHIL # (test code=NT#) 1.75 x10 3/uL 2.0-7.6 IMMATURE GRANULOCYTE # (test code=IG#) 0.01 x10 3/uL 0.00-0.03 LYMPHOCYTE # (test code=LY#) 2.24 x10 3/uL 1.0-3.8 MONOCYTE # (test code=MO#) 0.57 x10 3/uL 0.1-0.8 EOSINOPHIL # (test code=EO#) 0.21 x10 3/uL 0.0-0.2 BASOPHIL # (test code=BA#) 0.04 x10 3/uL 0.0-0.2 NUCLEATED RBC # (test code=NRBC#) 0.00 x10 3/uL 0.0-0.1 MANUAL DIFF REQUIRED (test code=MDIFF) NO [id number] 21:42:00* Test Item Value Reference Range Comments TROPONIN-I (test code=TROPI) 0.021 ng/mL 0.000-0.045 Negative: <=0.045 Positive: >=0.046 Correlation with serial results, other cardiac markers andclinical findings is necessary to determine the clinicalsignificance of this result. Results using different methodologies should not be comparedto one another as quantitative results may vary by method. COMMENTS: 3 troponins total (including troponin done in ED)[id number] 20:23:00* Test Item Value Reference Range Comments GLUBED (test code=GLUBED) 157 MG/DL 70-110 Performed by certified hasher machine operator at [facility] [id number] 18:40:00* Test Item Value Reference Range Comments TROPONIN-I (test code=TROPI) < 0.015 ng/mL 0.000-0.045 Negative: <=0.045 Positive: >=0.046 Correlation with serial results, other cardiac markers andclinical findings is necessary to determine the clinicalsignificance of this result. Results using different methodologies should not be comparedto one another as quantitative results may vary by method. COMMENTS: 3 troponins total (including troponin done in ED)[id number] 16:30:00* Test Item Value Reference Range Comments GLUBED (test code=GLUBED) 168 MG/DL 70-110 Performed by certified hasher machine operator at [facility] - XR CHEST 1 [id number] 14:12:00 FAX: Yakov Baig MD [phone] [place]: St: REG Name: MARK MIGUEL [facility] : [birth year] Age/S: 77/F [address] [place] [address] Unit #: [id number] Loc: [place] [address] Phys: Yakov Perez MD Acct: [id number] Dis Date: Status: REG ER PHONE #: [phone] Exam Date: 11/23/2018 1403 FAX #: [phone] Reason: Altered Mental Status EXAMS: CPT CODE: [id number] XR CHEST 1 V 14331 EXAM: Single view AP chest. EXAM DATE: 11/23/2018 1351 hours CLINICAL HISTORY: Altered Mental Status COMPARISON: June 11, 2018 at 1621 hours Median sternotomy wires are noted. Surgical clips are identified projected over the left hemithorax and stent material is seen in the region of the left axilla. Stable cardiomegaly is identified. The lungs appear free of acute disease. Visualized osseous structures demonstrate no acute abnormalities. IMPRESSION: Mild stable c ardiomegaly. at 1412 Reported and signed by: Corine Taylor M.D. CC: Yakov Perez MD Technologist: Nguyen mae RT(R)R; Yari Franco RT(R) Trnscbarbi Date/Time/By: 11/23/2018 (1 412) : By: Elida Orig Print D/T: S: 11/23/2018 (6073) PAGE 1 Signed Report B-TYPE NATRIURETIC [id number] 14:08:00* Test Item Value Reference Range Comments B-TYPE NATRIURETIC PEPTIDE (test code=BNP) 305.1 PG/ML 0-100 TROPONIN-I [id number] 13:46:00* Test Item Value Reference Range Comments TROPONIN-I RAPID (test code=TROPIRAP) 0.01 ng/mL 0.00-0.08 Performed by certified hasher machine operator at [facility] Negative: <=0.08 Positive: >=0.09An elevated troponin value alone is not sufficient todiagnose a myocardial infarction. Rather, the patient sclinical presentation (history, physical exam) and ECGshould be used in conjunction with troponin in thediagnostic evaluation of suspected myocardial infarction. Aserial sampling protocol is recommended to facilitate the identification of temporal changes in troponin levels characteristic of SC. COMPREHENSIVE METABOLIC [id number] 13:38:00* Test Item Value Reference Range Comments SODIUM (test code=NA) 136 mEq/L 134-147 POTASSIUM (test code=K) 4.4 mEq/L 3.4-5.0 CHLORIDE (test code=CL) 100 mEq/L 100-108 CARBON DIOXIDE (test code=CO2) 28 mEq/L 21-33 ANION GAP (test code=GAP) 12 0-20 GLUCOSE (test code=GLU) 180 mg/dL 70-110 BLOOD UREA NITROGEN (test code=BUN) 62 mg/dL 7-18 GLOMERULAR FILTRATION RATE (test code=GFR) 16.5 70-80 Units of measure=ml/min/1.73 m2 CREATININE (test code=CREAT) 3.3 mg/dL 0.6-1.3 TOTAL PROTEIN (test code=PROT) 7.7 g/dL 6.4-8.2 ALBUMIN (test code=ALB) 3.40 g/dL 3.4-5.0 CALCIUM (test code=CA) 8.9 mg/dL 8.0-10.5 BILIRUBIN TOTAL (test code=BILT) 0.30 mg/dL 0.0-1.0 SGOT/AST (test code=AST) 15 IUnit/L 15-37 SGPT/ALT (test code=ALT) 7 IUnit/L 15-65 ALKALINE PHOSPHATASE TOTAL (test code=ALKP) 114 IUnit/L 20-125 [id number] 13:38:00* Test Item Value Reference Range Comments LIPASE (test code=LIP) 205 IUnit/L 73-393 COMPREHENSIVE METABOLIC [id number] 13:35:00* Test Item Value Reference Range Comments SODIUM (test code=NA) 136 mEq/L 134-147 POTASSIUM (test code=K) 4.4 mEq/L 3.4-5.0 CHLORIDE (test code=CL) 100 mEq/L 100-108 CARBON DIOXIDE (test code=CO2) 28 mEq/L 21-33 ANION GAP (test code=GAP) 12 0-20 GLUCOSE (test code=GLU) 180 mg/dL 70-110 BLOOD UREA NITROGEN (test code=BUN) 62 mg/dL 7-18 GLOMERULAR FILTRATION RATE (test code=GFR) 16.5 70-80 Units of measure=ml/min/1.73 m2 CREATININE (test code=CREAT) 3.3 mg/dL 0.6-1.3 TOTAL PROTEIN (test code=PROT) g/dL 6.4-8.2 ALBUMIN (test code=ALB) 3.40 g/dL 3.4-5.0 CALCIUM (test code=CA) 8.9 mg/dL 8.0-10.5 BILIRUBIN TOTAL (test code=BILT) mg/dL 0.0-1.0 SGOT/AST (test code=AST) 15 IUnit/L 15-37 SGPT/ALT (test code=ALT) 7 IUnit/L 15-65 ALKALINE PHOSPHATASE TOTAL (test code=ALKP) IUnit/L 20-125 [id number] 13:35:00* Test Item Value Reference Range Comments LIPASE (test code=LIP) 205 IUnit/L 73-393 - CT HEAD/BRAIN W/O [id number] 13:31:00 Name: MARK WALLACE [facility] : 1940 Age/S: 77 / F [address] [place] [address] Unit #: [id number] Loc: [place] [address] Phys: Yakov Perez MD Acct: [id number] Dis Date: Status: PRE ER PHONE #: [phone] Exam Date: 11/23/2018 1320 FAX #: [phone] Reason: Altered Mental Status EXAMS: CPT CODE: [id number] CT HEAD/BRAIN W/O CONT 65633 CT HEAD WITHOUT CONTRAST: HISTORY: Altered mental status. Slow to respond. PROCEDURE: Multiple axial images from the skull base to the skull vertex were obtained without contrast. Coronal and sagittal reconstructed images were performed. CT imaging performed at this location utilizes radiation dose optimization techniques which include one or more of the following: - Automated exposure control -Adjustment of the mA and/or kV according to patient size -Use of iterative reconstruction technique CT Radiation Dose DLP 419.7 mGy-cm COMPARISON: 06/10/2018 FINDINGS: PARENCHYMA: No acute hemorrhage, midline shift, extra- axial fluid collection, mass, or hydrocephalus is present. There is moderate atrophy. There are severe white matter hypodensities. Old left parietal infarct is noted No sulcal effacement to suggest acute infa rct is present. SKULL BASE AND SINUSES: The visualized mastoid a ir cells are clear. There is no air-fluid level in the visualized paranas al sinuses. Calvarium is intact. Distal internal carotid arterial calcif ications are present. IMPRESSION: 1. No acute int racranial abnormality. 2. Moderate atrophy and severe chronic microvasc ular ischemic changes. 3. Old left parietal infarct. Findings were discussed with Dr. Perez by Dr. Chappell at 1:30 PM on 11/23/2018. SL: BM-H PAGE 1 Signed Report (CONTINUED) Name: MARK WALLACE [facility] : 1940 Age/S: 77 / F [address] [place] [address] Unit #: [id number] Loc: [place] [address] Phys: Yakov Perez MD Acct: [id number] Dis Date: Status: PRE ER PHONE #: [phone] Exam Date: 2018 1320 FAX #: [phone] Reason: Altered Mental S tatus EXAMS: CPT CODE: [id number] CT HEAD/BRAIN W/O CONT 704 50 <Continued> at 1331 Reported and signed by: Steven Chappell M.D. CC: Yakov Perez MD Technologist:Beverley Bowers, RT(R)(CT) CTDI: DLP: Trnscb Date/Time: 11/23/2018 (1275) [email or web address] Orig Print D/T: S: 11/23/2018 (6070) PAGE 2 Signed Report PROTHROMBIN [id number] 13:28:00* Test Item Value Reference Range Comments PROTHROMBIN TIME PATIENT (test code=PTP) 12.2 SECONDS 9.3-12.9 INTERNATIONAL NORMAL RATIO (test code=INR) 1.1 0.8-1.2 TARGET INR BY INDICATION Indication INR1. Prophylaxis of venous thrombosis 2.0 - 3.0 (orthopedic surgery), Prophylaxis of venous thrombosis (other than high-risk surgery), Treatment of Deep Vein Thrombosis/Pulmonary Embolism, Prevention of systemic embolism - Tissue heart valves, Acute Myocardial Infarction (to prevent systemic embolism), Valvular heart disease, Atrial Fibrillation, Bileaflet mechanical valve in aortic position.2. Mechanical prosthetic valves (high risk), 2.5 - 3.5 Presence of Lupus Anticoagulant or Antiphospholipid Antibodies, Prevention of systemic embolism - Acute Myocardial Infarction (to prevent recurrent infarct). THROMBOPLASTIN TIME [id number] 13:28:00* Test Item Value Reference Range Comments THROMBOPLASTIN TIME PARTIAL (test code=PTT) 32.9 Seconds 25.0-39.5 Therapeutic Range: 50.4 - 88.3 Seconds Effective 09/09/2018 PROTHROMBIN [id number] 13:26:00* Test Item Value Reference Range Comments PROTHROMBIN TIME PATIENT (test code=PTP) 12.2 SECONDS 9.3-12.9 INTERNATIONAL NORMAL RATIO (test code=INR) 1.1 0.8-1.2 TARGET INR BY INDICATION Indication INR1. Prophylaxis of venous thrombosis 2.0 - 3.0 (orthopedic surgery), Prophylaxis of venous thrombosis (other than high-risk surgery), Treatment of Deep Vein Thrombosis/Pulmonary Embolism, Prevention of systemic embolism - Tissue heart valves, Acute Myocardial Infarction (to prevent systemic embolism), Valvular heart disease, Atrial Fibrillation, Bileaflet mechanical valve in aortic position.2. Mechanical prosthetic valves (high risk), 2.5 - 3.5 Presence of Lupus Anticoagulant or Antiphospholipid Antibodies, Prevention of systemic embolism - Acute Myocardial Infarction (to prevent recurrent infarct). THROMBOPLASTIN TIME [id number] 13:26:00* Test Item Value Reference Range Comments THROMBOPLASTIN TIME PARTIAL (test code=PTT) Seconds 25.0-39.5 CBC W/AUTO [id number] 13:24:00* Test Item Value Reference Range Comments WHITE BLOOD CELL (test code=WBC) 4.95 x10 3/uL 4.5-11.0 RED BLOOD CELL (test code=RBC) 4.69 x10 6/uL 3.54-5.02 HEMOGLOBIN (test code=HGB) 12.9 g/dL 11.0-15.0 HEMATOCRIT (test code=HCT) 41.4 % 33.0-45.0 MEAN CELL VOLUME (test code=MCV) 88.3 fL 81.0-99.0 MEAN CELL HGB (test code=MCH) 27.5 pg 27.0-33.0 MEAN CELL HGB CONCETRATION (test code=MCHC) 31.2 g/dL 33.0-37.0 RED CELL DISTRIBUTION WIDTH CV (test code=RDW) 14.9 % 11.5-14.5 RED CELL DISTRIBUTION WIDTH SD (test code=RDW-SD) 47.8 fL 37.0-54.0 PLATELET COUNT (test code=PLT) 140 x10 3/uL 150-400 MEAN PLATELET VOLUME (test code=MPV) 12.2 fL 7.0-9.0 NEUTROPHIL % (test code=NT%) 50.1 % 56.0-77.0 IMMATURE GRANULOCYTE % (test code=IG%) 0.2 % 0.0-2.0 LYMPHOCYTE % (test code=LY%) 39.6 % 14.0-32.0 MONOCYTE % (test code=MO%) 6.3 % 4.8-9.0 EOSINOPHIL % (test code=EO%) 3.0 % 0.3-3.7 BASOPHIL % (test code=BA%) 0.8 % 0.0-2.0 NUCLEATED RBC % (test code=NRBC%) 0.0 % 0-0 NEUTROPHIL # (test code=NT#) 2.48 x10 3/uL 2.0-7.6 IMMATURE GRANULOCYTE # (test code=IG#) 0.01 x10 3/uL 0.00-0.03 LYMPHOCYTE # (test code=LY#) 1.96 x10 3/uL 1.0-3.8 MONOCYTE # (test code=MO#) 0.31 x10 3/uL 0.1-0.8 EOSINOPHIL # (test code=EO#) 0.15 x10 3/uL 0.0-0.2 BASOPHIL # (test code=BA#) 0.04 x10 3/uL 0.0-0.2 NUCLEATED RBC # (test code=NRBC#) 0.00 x10 3/uL 0.0-0.1 MANUAL DIFF REQUIRED (test code=MDIFF) NO [id number] 17:57:00* Test Item Value Reference Range Comments GLUBED (test code=GLUBED) 161 MG/DL 70-110 Performed by certified hasher machine operator at [facility] [id number] 08:07:00* Test Item Value Reference Range Comments GLUBED (test code=GLUBED) 164 MG/DL 70-110 Performed by certified hasher machine operator at [facility] [id number] 21:40:00* Test Item Value Reference Range Comments GLUBED (test code=GLUBED) 161 MG/DL 70-110 Performed by certified hasher machine operator at [facility] [id number] 17:54:00* Test Item Value Reference Range Comments GLUBED (test code=GLUBED) 159 MG/DL 70-110 Performed by certified hasher machine operator at [facility] [id number] 13:13:00* Test Item Value Reference Range Comments GLUBED (test code=GLUBED) 176 MG/DL 70-110 Performed by certified hasher machine operator at [facility] [id number] 08:51:00* Test Item Value Reference Range Comments GLUBED (test code=GLUBED) 134 MG/DL 70-110 Performed by certified hasher machine operator at [facility] [id number] 21:09:00* Test Item Value Reference Range Comments GLUBED (test code=GLUBED) 185 MG/DL 70-110 Performed by certified hasher machine operator at [facility] [id number] 19:00:00* Test Item Value Reference Range Comments GLUBED (test code=GLUBED) 145 MG/DL 70-110 Performed by certified hasher machine operator at [facility] [id number] 13:41:00* Test Item Value Reference Range Comments GLUBED (test code=GLUBED) 172 MG/DL 70-110 Performed by certified hasher machine operator at [facility] - DUP EXTRACRANIAL [id number] 13:12:00 Name: MARK WALLACE [facility] : 1940 Age/S: 77 / F [address] [place] [address] Unit #: [id number] Loc: [place] [address] Phys: Yung Mckinnon MD Acct: [id number] Dis Date: Status: ADM IN PHONE #: [phone] Exam Date: 06/17/2018 1253 FAX #: [phone] Reason: ct results EXAMS: CPT CODE: [id number] DUP EXTRACRANIAL FUENTES 17761 Clinical Indication: 77-year-old female with hypertension, diabetes, hyperlipidemia, and stroke; carotid stenosis noted on prior neck CT Comparison: CT neck 06/15/2017 TECHNIQUE: Daley- scale, color Doppler and spectral Doppler of the carotid arteries was performed. Any reported ICA stenoses indirectly reference the distal internal carotid diameter as the denominator for the stenosis measurement, utilizing consensus panel criteria. FINDINGS: RIGHT: Moderate plaque in the CCA and proximal ICA ICA PSV 112 cm/sec CCA PSV 86 cm/sec ICA/CCA ratio 1.3 Vertebral flow is antegrade. External carotid artery is patent. LEFT: Moderate plaque in the CCA and proximal ICA ICA PSV 109 cm/sec CCA PSV 95 cm/sec ICA/CCA ratio 1.1 Vertebral flow is antegrade. External carotid artery is patent. IMPRESSION: 1. RIGHT: ICA stenosis <50 % by velocity criteria. 2. LEFT: ICA stenosis <50 % by velocity criteria. Consensus panel Doppler US criteria for diagnosis of ICA stenosis: Stenosis (%) ICA PSV (cm/sec) ICA/CCA ratio ------ <50 <125 <2.0 50-69 125-230 2.0-4.0 >70 but less than >230 >4.0 near occlusion Near occlusion High, low, or Variable undetectable PAGE 1 Signed Report (CONTINUED) Name: MARK WALLACE [facility] : 1940 Age/S: 77 / F [address] [place] [address] Blvd Unit #: [id number] Loc: [place] [address] Phys: Yung Mckinnon MD Acct: [id number] Dis Date: Status: ADM IN PHONE #: [phone] Exam Date: 06/17/2018 1253 FAX #: [phone] Reason: ct results EXAMS: CPT CODE: [id number] DUP EXTRACRANIAL FUENTES 95454 <Continued> SL: [id number] at 1312 Reported and signed by: Jimenez Vaca M.D. CC: Yung Mckinnon MD Technologist: Ele Fowler RDMS(Sreedhar)(OB) Trnscb Date/Time: 06/17/2018 (1312) [id number] Orig Print D/T: S: 06/17/2018 (6526) Probe: PAGE 2 Signed Report [id number] 08:22:00* Test Item Value Reference Range Comments GLUBED (test code=GLUBED) 122 MG/DL 70-110 Performed by certified hasher machine operator at [facility] [id number] 20:40:00* Test Item Value Reference Range Comments GLUBED (test code=GLUBED) 198 MG/DL 70-110 Performed by certified hasher machine operator at [facility] [id number] 08:27:00* Test Item Value Reference Range Comments GLUBED (test code=GLUBED) 115 MG/DL 70-110 Performed by certified hasher machine operator at [facility] BASIC METABOLIC [id number] 08:27:00* Test Item Value Reference Range Comments SODIUM (test code=NA) 130 mEq/L 134-147 POTASSIUM (test code=K) 4.3 mEq/L 3.4-5.0 CHLORIDE (test code=CL) 93 mEq/L 100-108 CARBON DIOXIDE (test code=CO2) 29 mEq/L 21-33 ANION GAP (test code=GAP) 12 0-20 GLUCOSE (test code=GLU) 120 mg/dL 70-110 BLOOD UREA NITROGEN (test code=BUN) 28 mg/dL 7-18 GLOMERULAR FILTRATION RATE (test code=GFR) 9.5 70-80 Units of measure=ml/min/1.73 m2 CREATININE (test code=CREAT) 5.3 mg/dL 0.6-1.3 CALCIUM (test code=CA) 8.9 mg/dL 8.0-10.5 [id number] 08:27:00* Test Item Value Reference Range Comments PHOSPHOROUS (test code=PHOS) 3.0 mg/dL 2.5-4.9 [id number] 08:27:00* Test Item Value Reference Range Comments MAGNESIUM (test code=MAG) 2.10 mg/dL 1.8-2.4 CBC W/AUTO [id number] 08:03:00* Test Item Value Reference Range Comments WHITE BLOOD CELL (test code=WBC) 5.39 x10 3/uL 4.5-11.0 RED BLOOD CELL (test code=RBC) 3.75 x10 6/uL 3.54-5.02 HEMOGLOBIN (test code=HGB) 10.2 g/dL 11.0-15.0 HEMATOCRIT (test code=HCT) 34.3 % 33.0-45.0 MEAN CELL VOLUME (test code=MCV) 91.5 fL 81.0-99.0 MEAN CELL HGB (test code=MCH) 27.2 pg 27.0-33.0 MEAN CELL HGB CONCETRATION (test code=MCHC) 29.7 g/dL 33.0-37.0 RED CELL DISTRIBUTION WIDTH CV (test code=RDW) 14.7 % 11.5-14.5 RED CELL DISTRIBUTION WIDTH SD (test code=RDW-SD) 49.5 fL 37.0-54.0 PLATELET COUNT (test code=PLT) 114 x10 3/uL 150-400 MEAN PLATELET VOLUME (test code=MPV) 12.6 fL 7.0-9.0 NEUTROPHIL % (test code=NT%) 36.1 % 56.0-77.0 IMMATURE GRANULOCYTE % (test code=IG%) 0.2 % 0.0-2.0 LYMPHOCYTE % (test code=LY%) 48.2 % 14.0-32.0 MONOCYTE % (test code=MO%) 9.8 % 4.8-9.0 EOSINOPHIL % (test code=EO%) 4.8 % 0.3-3.7 BASOPHIL % (test code=BA%) 0.9 % 0.0-2.0 NUCLEATED RBC % (test code=NRBC%) 0.0 % 0-0 NEUTROPHIL # (test code=NT#) 1.94 x10 3/uL 2.0-7.6 IMMATURE GRANULOCYTE # (test code=IG#) 0.01 x10 3/uL 0.00-0.03 LYMPHOCYTE # (test code=LY#) 2.60 x10 3/uL 1.0-3.8 MONOCYTE # (test code=MO#) 0.53 x10 3/uL 0.1-0.8 EOSINOPHIL # (test code=EO#) 0.26 x10 3/uL 0.0-0.2 BASOPHIL # (test code=BA#) 0.05 x10 3/uL 0.0-0.2 NUCLEATED RBC # (test code=NRBC#) 0.00 x10 3/uL 0.0-0.1 MANUAL DIFF REQUIRED (test code=MDIFF) NO [id number] 20:37:00* Test Item Value Reference Range Comments GLUBED (test code=GLUBED) 156 MG/DL 70-110 Performed by certified hasher machine operator at [facility] [id number] 16:33:00* Test Item Value Reference Range Comments GLUBED (test code=GLUBED) 146 MG/DL 70-110 Performed by certified hasher machine operator at [facility] - CT NECK [id number] 15:34:00 Name: MARK WALLACE [facility] : 1940 Age/S: 77 / F [address] [place] [address] Unit #: [id number] Loc: [place] [address] Phys: Patrick Hunt MD Acct: [id number] Dis Date: Status: ADM IN PHONE #: [phone] Exam Date: 06/15/2018 1502 FAX #: [phone] Reason: LOSS OF VOICE EXAMS: CPT CODE: [id number] CT NECK W/CONTRAST 66490 CT NECK WITH CONTRAST INDICATION: LOSS OF VOICE. TECHNIQUE: 100 mL Isovue-300 iodinated intravenous contrast was administered followed by CT imaging of the neck structures with axial, coronal and sagittal reconstructions. Radiation exposure dose length product 346 mGy-cm. COMPARISONS: Chest x-ray 06/11/2018, CT chest 06/22/2011 FINDINGS: There is no acute osseous fracture or dislocation. There are multilevel degenerative disc and spondylotic changes of the spine. There is moderate to severe spinal canal stenosis at C4-C5. There is severe spinal canal stenosis at C5-C6 and at the C6 vertebral level. There are surgical changes of sternotomy. There is a moderate burden of atherosclerotic vascular calcification of the intracranial arteries. The nasopharynx and oropharynx appear symmetric and normal. The epiglottis is normal. The larynx appears normal. There is no laryngeal mass or evidence of vocal cord paralysis. There is no retropharyngeal fluid. There is no critical airway stenosis. There is a 12 x 12 mm hypodense right thyroid nodule. Thyroid nodules this size in this patient's age are statistically most likely benign and require no additional follow-up. There is moderate atherosclerotic vascular calcification of the aorta. There is severe atherosclerotic calcification of the carotid vascul ature. There is a right internal jugular access central venous catheter t hat enters the superior vena cava and extends beyond the field of view. T here is an incompletely imaged left axillary vascular conduit. There is no lymphadenopathy. There is no cervical soft tissue mass, fl uid collection or inflammatory process. IMPRESSION: 1. There is no neck mass or acute inflammatory process. PAGE 1 Signed Report (CONTINUED) Name: JOSE WALLACE [facility] : 1940 Age/ S: 77 / F [address] [place] [address] Unit #: [id number] Loc: [place] [address] Phys: Patrick Hunt MD Acct: [id number] Dis Date: Status: ADM IN PHONE #: [phone] Exam Date: 06/15/2018 1502 FAX #: [phone] Reason: LOSS OF VOICE EXAMS: CPT CODE: [id number] CT NECK W/CONTRAST 50145 <Continued> 2. There is severe atherosclerotic calcification and stenosis of the internal carotid vasculature. 3. There are multilevel degenerative disc and spondylotic changes of the spine. There is moderate to severe spinal canal stenosis at C4-C5. There is severe spinal canal stenosis at C5-C6 and at the C6 vertebral level. at 1534 Reported and signed by: Genaro Leon M.D. CC: Patrick Hunt MD; Yung Mckinnon MD Technologist:Beverley Bowers, RT(R)(CT) CTDI: DLP: Trnscb Date/Time: 06/15/2018 (1534) [id number] Orig Print D/T: S: 06/15/2018 (1537) CTDI: DLP: PAGE 2 Signed Report [id number] 15:13:00* Test Item Value Reference Range Comments GLUBED (test code=GLUBED) 177 MG/DL 70-110 Performed by certified hasher machine operator at [facility] [id number] 07:50:00* Test Item Value Reference Range Comments GLUBED (test code=GLUBED) 113 MG/DL 70-110 Performed by certified hasher machine operator at [facility] [id number] 21:06:00* Test Item Value Reference Range Comments GLUBED (test code=GLUBED) 185 MG/DL 70-110 Performed by certified hasher machine operator at [facility] [id number] 19:40:00* Test Item Value Reference Range Comments GLUBED (test code=GLUBED) 125 MG/DL 70-110 Performed by certified hasher machine operator at [facility] [id number] 11:58:00* Test Item Value Reference Range Comments GLUBED (test code=GLUBED) 196 MG/DL 70-110 Performed by certified hasher machine operator at [facility] [id number] 11:58:00* Test Item Value Reference Range Comments GLUBED (test code=GLUBED) 129 MG/DL 70-110 Performed by certified hasher machine operator at [facility] [id number] 20:31:00* Test Item Value Reference Range Comments GLUBED (test code=GLUBED) 187 MG/DL 70-110 Performed by certified hasher machine operator at [facility] [id number] 20:14:00* Test Item Value Reference Range Comments GLUBED (test code=GLUBED) 174 MG/DL 70-110 Performed by certified hasher machine operator at [facility] [id number] 12:21:00* Test Item Value Reference Range Comments GLUBED (test code=GLUBED) 164 MG/DL 70-110 Performed by certified hasher machine operator at [facility] [id number] 08:13:00* Test Item Value Reference Range Comments GLUBED (test code=GLUBED) 125 MG/DL 70-110 Performed by certified hasher machine operator at [facility] [id number] 21:31:00* Test Item Value Reference Range Comments GLUBED (test code=GLUBED) 206 MG/DL 70-110 Performed by certified hasher machine operator at [facility] [id number] 18:10:00* Test Item Value Reference Range Comments GLUBED (test code=GLUBED) 149 MG/DL 70-110 Performed by certified hasher machine operator at [facility]
[2018-12-16 20:00] VITALS: BP 134/60
--- NOTE | 2018-12-16 20:30 | NUR ---
NEW IV #22 gauge placed to right hand x 1 stick at this time.
[2018-12-16] MEDS ORDERED: DEXTROSE 5%/0.9% SOD CHL 1,000 ML IV SCH (20:45)
[2018-12-16 21:05] LABS: BASOPHILS % 0.3 % (0.0-1.0); EOSINOPHILS # (AUTO) 0.3 (0.0-0.4); HEMATOCRIT 33.5 % (34.2-44.1); HEMOGLOBIN 10.2 g/dL (12.0-16.0); LYMPHOCYTES # (AUTO) 2.1 (1.0-3.2); LYMPHOCYTES % 31.4 % (18.0-39.1); MEAN CORPUSCULAR HEMOGLOBIN 27.6 pg (28-32); MEAN CORPUSCULAR HGB CONC 30.4 g/dL (31-35); MEAN CORPUSCULAR VOLUME 90.8 fL (81-99); MONOCYTES # (AUTO) 0.7 (0.2-0.8); MONOCYTES % 10.7 % (4.4-11.3); NEUTROPHILS # (AUTO) 3.6 (2.1-6.9); NEUTROPHILS % 53.2 % (38.7-80.0); PLATELET COUNT 149 x10e3/uL (140-360); RED BLOOD COUNT 3.69 x10e6/uL (3.6-5.1); RED CELL DISTRIBUTION WIDTH 13.5 % (11.7-14.4)
--- NOTE | 2018-12-16 21:25 | NUR ---
PT IS TRANSFERRED FROM [facility] AOX3 .DX POOR DENTITION OF MOUTH PAIN PT HAS COLOSTOMY AND BILATERAL BKA .RESPIRATIONS ARE EVEN AND UNLABORED .PT HAS STAGE 3 AT RT BUTTOCK AND LEFT LOWER BUTTOCKS .CONSULTED DR ROSA AND DR FERNANDEZ LEFT UPPER ARM AV FISTULA .TURNED THE PT Q2HRS .CALL LIGHT WITH IN REACH .CONTINUE TO MONITOR
[2018-12-16 21:29] LABS: ALANINE AMINOTRANSFERASE < 6 IU/L (0-55); ALBUMIN 2.8 g/dL (3.5-5.0); ALBUMIN/GLOBULIN RATIO 0.6 (0.8-2.0); ALKALINE PHOSPHATASE 85 IU/L (40-150); ANION GAP 15.4 mmol/L (8-16); BLOOD UREA NITROGEN 56 mg/dL (7-26); BUN/CREATININE RATIO 9 (6-25); CALCIUM 9.3 mg/dL (8.4-10.2); CARBON DIOXIDE 32 mmol/L (22-29); CHLORIDE 94 mmol/L (98-107); EST GLOMERULAR FILTRATION RATE 8 ML/MIN (60-); GLUCOSE 207 mg/dL (74-118); POTASSIUM 4.4 mmol/L (3.5-5.1); SODIUM 137 mmol/L (136-145)
[2018-12-16] MEDS: CLINDAMYCIN 600MG / 50ML 50 ML IV SCH (22:00)
[2018-12-16 23:46] VITALS: BP 134/60
[2018-12-17] VITALS (8 sets, daily range): BP systolic 111–170; BP diastolic 55–76
[2018-12-17] MEDS ORDERED: LANTUS 3ML100 UNITS/ SQ (04:13)
[2018-12-17] MEDS ORDERED: NORCO 10-325 T1 EACH PO (04:13)
[2018-12-17] MEDS ORDERED: ZOFRAN8 MG PO (04:13)
[2018-12-17] MEDS ORDERED: LACTULOSE20 GM/30 M PO (04:13)
[2018-12-17] MEDS ORDERED: CHLORASEPTIC177 ML MT (04:13)
[2018-12-17] MEDS ORDERED: REGLAN5 MG PO (04:13)
[2018-12-17] MEDS ORDERED: RENAGEL800 MG PO (04:13)
[2018-12-17] MEDS ORDERED: REMERON15 M1 (04:13)
[2018-12-17] MEDS ORDERED: CATAPRES0.2 MG PO (04:13)
[2018-12-17] MEDS ORDERED: POLYETHYLENE GL17 GM PO (04:13)
[2018-12-17] MEDS ORDERED: PREDNISOLO15 MG/5 ML PO (04:13)
[2018-12-17] MEDS ORDERED: SINEMET 25-1001 EACH PO (04:13)
[2018-12-17] MEDS ORDERED: SEVELAMER CARBONATE 800 MG TAB PO PRN (04:30)
[2018-12-17] MEDS: CLINDAMYCIN 600MG / 50ML 50 ML IV SCH ×3 (05:55→22:00)
[2018-12-17] MEDS ORDERED: PRED FORTE OP (05:59)
[2018-12-17] MEDS: LACTULOSE SYRUP 20 GM/30 ML UDC PO SCH ×3 (06:41→18:00)
[2018-12-17] MEDS ORDERED: LACTULOSE SYRUP 20 GM/30 ML UDC PO SCH (07:00)
--- NOTE | 2018-12-17 08:01 | NUR ---
Spoke to Armand (mrs Grant) regarding patient scheduled Dialysis today, they said the nurse will be here.
--- NOTE | 2018-12-17 08:16 | NUR ---
patient tolerated 50% of breakfast, Dr Washington had rounds, paged [phone] family to get telephone consent for Dialysis
[2018-12-17] MEDS: CLONIDINE HCL 0.2 MG TAB PO SCH ×3 (09:00→21:00)
[2018-12-17] MEDS ORDERED: DEXTROSE 50% SYRINGE 50 ML IV PRN ×2 (09:15)
[2018-12-17] MEDS: CHLORASEPTIC SPRAY 177 ML BTL MM SCH ×2 (09:44→17:00)
[2018-12-17] MEDS: POLYETHYLENE GLYCOL 3350 17 GM PACK PO SCH (09:44)
[2018-12-17] MEDS: CARBIDOPA/LEVODOPA 25/100 TAB PO SCH ×3 (09:44→21:00)
--- NOTE | 2018-12-17 11:15 | NUR ---
Visit made by the Spiritual Care Department Pastoral Visitor, Zoë Lynn. PV provided pastoral presence, prayer, hospitality, and supportive listening. Pastoral Visitor informed pt/family of the scope of [employer] and availability. FAISAL SY Pulp Refiner Operator Spiritual Care Department O: [phone] Pager: [phone] ([phone] number calling from)
[2018-12-17] MEDS ORDERED: INSULIN LISPRO 100 UNIT/1 ML 3ML VIAL SQ SCH ×2 (11:30)
[2018-12-17] MEDS: INSULIN LISPRO 100 UNIT/1 ML 3ML VIAL SQ SCH ×3 (11:42→21:00)
--- NOTE | 2018-12-17 12:36 | History and Physical ---
I am covering for Dr. Fulton. HISTORY OF PRESENT ILLNESS: Ms. Yeager is a 78-year-old long term resident with a history of coronary artery disease, hypertension, hyperlipidemia, CHF, peripheral vascular disease, Parkinson disease, dysarthria, end-stage renal disease, on dialysis, who was sent today to the hospital because they noticed that the patient was not eating properly with a very little intake of food and water. She was found to have severe mouth pain and she was sent to [facility] to be seen by oral surgeon. PAST MEDICAL HISTORY: The patient has coronary artery disease, hypertension, hyperlipidemia, CHF, peripheral vascular disease, Parkinson disease, seizure disorder, dysarthria, end-stage renal disease. She is requiring dialysis. Depression, anxiety, chronic pain. PAST SURGICAL HISTORY: She had CABG in 2007, diverting colostomy, bilateral below-knee amputation of the lower extremities. She has also tunneled dialysis cath placement. SOCIAL HISTORY: Former smoker, apparently no alcohol. At present time, she lives in a long term. ALLERGIES: SHE IS ALLERGIC TO PARVIN INHIBITORS. CODEINE CAUSED TOO MUCH SEDATION FOR HER AND DIPHENHYDRAMINE HYDROCHLORIDE SHE IS ALLERGIC TO THAT TOO. PHYSICAL EXAMINATION: GENERAL: Today, the patient is opening her eyes, but she is nonverbal. VITAL SIGNS: Temperature is 97.6, blood pressure 148/66. HEART: Regular rate. LUNGS: Poor inspiratory effort. ABDOMEN: Distended and soft. EXTREMITIES: She has bilateral [id number] amputation of the lower extremities. LABORATORY DATA: On the blood work; white count is 6.82, hemoglobin is 10.2, hematocrit 33.5. Potassium 4.4, creatinine is 5.90, GFR is 8, glucose is 207, albumin is 2.8. ASSESSMENT: 1. Failure to thrive with malnutrition and dehydration. 2. Severe gingivitis and poor dentition causing severe mouth pain. 3. Diabetes type 2 with hyperglycemia. 4. Diabetes type 2 with end-stage renal disease. 5. End-stage renal disease. 6. Dialysis dependent. 7. Depression. 8. Hypertension. 9. Peripheral vascular disease, status post bilateral below-knee amputation. 10. Reflux. 11. Chronic pain. 12. Parkinson disease. 13. History of the DVT and pulmonary embolism. 14. History of seizure disorder. 15. Coronary artery disease, status post coronary artery bypass grafting. 16. History of cerebrovascular accident with dysarthria. PLAN: At present time is to admit the patient to the hospital. We do not have an oral surgeon available, so we are going to get an ENT consult with Dr. Fernandez. We are going to get Infectious Disease Dr. Fuentes and Dr. Biggs her stock selector. We are going to put her on a soft ADA diet, sliding scale with insulin. She is on clindamycin IV q.8 hours. Continue pain medication. She is on [place] 10 every 4 hours for severe pain, carbidopa/levodopa for her Parkinson disease. She is also on clonidine 0.1 mg three times a day for high blood pressure. Continue to monitor mental status and respiratory status. All this was discussed today with nurse. Dr. Fulton will be resuming her care tomorrow morning. MD SAKINA Bowman/CHASTITY /[id number]
[2018-12-17] MEDS ORDERED: SODIUM CHLORIDE 0.9% 250ML 500 ML IV PRN (13:15)
[2018-12-17] MEDS ORDERED: SODIUM CHLORIDE 0.9% 1000ML 2,000 ML IV PRN (13:15)
[2018-12-17] MEDS: BALSAM PERU/CASTOR OIL 60 GM OINT...G. TP SCH (13:50)
--- NOTE | 2018-12-17 14:38 | NUR ---
WOUND CARE NURSE INITIAL CONSULTATION. 78 YEAR OLD FEMALE ADMITTED TO [facility] WITH DX OF POOR DENTITION, MOUTH PAIN AND GINGIVITIS. HEAD TO TOE SKIN ASSESSMENT PERFORMED TODAY. PT PRESENTS WITH EXCORIATION TO PERINEUM AND BILATERAL BUTTOCKS. SMALL HEALING ABRASIONS PRESENT TO BREAST AND ABDOMINAL FOLDS. BILATERAL HEALED BKA ARE PT NEEDS MAXIMUM ASSISTANCE TO REPOSITION. NOTED. NO OTHER CONCERNS ARE NOTED AT THIS TIME. LABS: WBC: 6.82 ALB: 2.8 GLUCOSE: 289 RECOMMENDATIONS: TURN PT EVERY TWO HOURS AND PRN. CONTINUE WITH PILLOW SUSPENSIONS TO BILATERAL BKA'S PLACE PT ON ALTERNATING LOW AIR LOSS MATTRESS. APPLY VENELEX OINTMENT TO BILATERAL BUTTOCKS, PERINEUM, BREAST AND ABDOMINAL FOLDS. KEEP THIS AREAS DRY. DO NOT USE DIAPERS. THANKS FOR THIS CONSULTATION. Addendum: 12/17/18 at 1445 by Afia Rey RN Amended: Links added.
[2018-12-17] MEDS ORDERED: LIDOCAINE/PRILOCAINE 2.5-2.5% KIT TOP ONE (15:15)
--- NOTE | 2018-12-17 16:44 | Consultation ---
DATE OF CONSULTATION: REASON FOR CONSULTATION: Recommendation for antibiotic. HISTORY OF PRESENT ILLNESS: This is a 78-year-old female, does not provide meaningful information. The patient who has past medical history of coronary artery disease, hypertension, hyperlipidemia, congestive heart failure, Parkinson disease, seizure disorder, end-stage renal disease on hemodialysis, depression and anxiety, chronic pain, history of CABG in 2007, diverting colostomy [id number] amputation, and bilateral tunneled dialysis catheter placement. The patient comes into the hospital because of shortness of breath and not feeling well. The patient apparently has not been eating for the last few days. It is slowly deteriorating. The patient was sent here to be admitted and evaluated. The patient does not provide any meaningful information. The patient is currently alert, but does not follow any command. PAST MEDICAL HISTORY: As above. PAST SURGICAL HISTORY: As above. ALLERGIES: NKA. SOCIAL HISTORY: From senior care notes, she used to be smoker. No drug abuse or alcohol abuse. FAMILY HISTORY: Hypertension. REVIEW OF SYSTEMS: Could not be obtained. LABORATORY DATA: Reviewed. White count 6.82. Sodium 137, potassium 4.4, creatinine 5.9. PHYSICAL EXAMINATION: GENERAL: She is alert, confused. VITAL SIGNS: Stable, afebrile. HEENT: She has poor dental hygiene. NECK: Supple. No JVD. No lymphadenopathy. No thyromegaly. CHEST: Few crackles bilaterally. COR: S1 and S2. No S3, S4, or murmur. ABDOMEN: Soft. Bowel sounds present. No tenderness. EXTREMITIES: No edema. She had severe erythema noted in the mouth with swelling in both gums. IMPRESSION: 1. Altered mental status. 2. Gingivitis. 3. End-stage renal disease on hemodialysis. 4. Diabetes mellitus type 2. 5. Depression. 6. Peripheral vascular disease status post bilateral ofmmz-dds-sipa amputation. PLAN: Agree with clindamycin. Agree with ENT evaluation. We will recheck CBC. Recheck Chem panel. We will follow with you. Further recommendations to follow. MD VICTOR M Starks/MODGayle /[id number]
--- NOTE | 2018-12-17 17:53 | NUR ---
Dialysis nurse a bed side , patient on Dialysis,no distress noted
[2018-12-17] MEDS: SEVELAMER CARBONATE 800 MG TAB PO SCH (18:00)
--- NOTE | 2018-12-17 20:00 | NUR ---
RECEIVED PT IN BED AOX3 .GETTING DIALYSIS.AND HAS TAKEN 1.3 L NO ACUTE DISTRESS NOTED CALL LIGHT WITH IN REACH .CONTINUE TO MONITOR
--- NOTE | 2018-12-17 20:14 | Consultation ---
DATE OF CONSULTATION: 12/17/2018 HISTORY OF PRESENT ILLNESS: Most of the history is from electronic records. The patient barely opens eyes, does not follow any commands. Unable to get review of systems. This is a 78-year-old Afro-Lao lady, skilled nursing patient with a history of Parkinson's, hypertension, coronary artery disease, underlying history of congestive heart failure, end-stage renal disease, left upper arm AV graft. She has a diverting colostomy on the left. Has had coronary artery bypass surgery in 2007, is bilateral lower extremity amputee, BKA. She has a prior history of tobacco addiction and admitted with severe gingivitis and poor dentition. She has prior history of DVT with pulmonary embolism. History of seizure disorder. History of CVA. Renal consult for management of kidney failure. LABS: Show white count of 6.2, hemoglobin 10.2, potassium 4.4, creatinine 5.9. SOCIAL HISTORY: Does not smoke or drink. ALLERGIES: PARVIN INHIBITORS, BENAZEPRIL, AND DIPHENHYDRAMINE. CURRENT MEDICATIONS: The patient is on Renagel 800 mg p.o. t.i.d., insulin lispro, lactulose 20 mg p.o. q. 6, hydrocodone p.r.n., chloraseptic mouthwash, clonidine 0.1 mg p.o. t.i.d., carbidopa levodopa 25/100 one tablet p.o. t.i.d. She is on D5 NS, which I am going to stop. She is on clindamycin 600 mg IV q.8. PHYSICAL EXAMINATION: GENERAL: Resting, lying supine, in no apparent distress, was not opening her eyes until I touched her abdomen and when she opened eyes she does not follow any commands. She does not give any history. VITAL SIGNS: Blood pressure 164/69, pulse rate 74, respiratory rate 17, oxygen saturation 100%. She is afebrile. HEAD AND NECK: No icterus noted. The patient is not opening her mouth fully to examine. Neck veins appear flat. LUNGS: Supine exam poor voluntary effort, but no rales. HEART: S1, S2 audible. ABDOMEN: Otherwise soft, nontender. Colostomy bag noted left lower quadrant and bilateral BKA. EXTREMITIES: No edema. IMPRESSION: 1. End-stage renal disease. 2. Electrolyte imbalance. 3. Underlying hypertension. 4. Anemia of chronic kidney disease. 5. Evidence of mild fluid overload. PLAN: On hemodialysis. We are in the process of contacting skilled nursing to find out who her primary civil manager is and where she goes for dialysis. So far we have not obtained that information. We will keep trying to contact the daughter as well as skilled nursing. MD GAYATHRI Grover/CHASTITY /[id number]
[2018-12-17] MEDS ORDERED: INSULIN GLARGINE 100 UNITS/ML VIAL SQ SCH (21:00)
[2018-12-17] MEDS: HYDROCODONE/APAP 10MG-325MG TAB PO PRN (21:24)
[2018-12-18] VITALS (8 sets, daily range): BP systolic 99–176; BP diastolic 44–74
[2018-12-18] MEDS: LACTULOSE SYRUP 20 GM/30 ML UDC PO SCH ×4 (06:00→18:00)
[2018-12-18] MEDS: CLINDAMYCIN 600MG / 50ML 50 ML IV SCH ×3 (06:27→22:02)
[2018-12-18] MEDS: INSULIN LISPRO 100 UNIT/1 ML 3ML VIAL SQ SCH ×4 (07:44→21:00)
--- NOTE | 2018-12-18 08:11 | Consultation ---
DATE OF CONSULTATION: 12/18/2018 Hospital Consultation HISTORY OF PRESENT ILLNESS: I was kindly asked to see this 78-year-old woman for evaluation of "mouth pain." The patient is unable to give a definitive history, but reports that her symptoms of mouth pain have been present for at least the last 2-3 months. She was admitted due to progressively poor p.o. intake. PAST MEDICAL HISTORY: Reviewed in detail in the chart and is pertinent for end-stage renal disease, Parkinson disease, and [place] [facility] placement. REVIEW OF SYSTEMS: Otolaryngology review of systems is pertinent for hoarseness present for at least 4 months. PAST SURGICAL HISTORY: Reviewed and is noncontributory. PHYSICAL EXAMINATION: There is a moderate amount of cerumen in external auditory canals bilaterally. The visualized portion of the tympanic membrane is unremarkable. She has a mild S-shaped nasal septal deviation. The nasal mucosa is unremarkable. Intraoral examination shows dry mucous membranes and poor dentition. There is no candidiasis present. Posterior pharyngeal wall is unremarkable. There is no palpable cervical adenopathy. ASSESSMENT: 1. Stomatitis. 2. Dehydration. 3. Possible sicca syndrome. PLAN: 1. Peridex oral solution 5 mL swish and expectorate q.6 hours while awake. 2. The patient needs dental extractions for long-term care. MD KINDRA Angulo/TITOL /[id number]
[2018-12-18] MEDS: POLYETHYLENE GLYCOL 3350 17 GM PACK PO SCH (08:55)
[2018-12-18] MEDS: CLONIDINE HCL 0.2 MG TAB PO SCH ×3 (08:55→21:00)
[2018-12-18] MEDS: SEVELAMER CARBONATE 800 MG TAB PO SCH ×3 (08:55→18:40)
[2018-12-18] MEDS: BALSAM PERU/CASTOR OIL 60 GM OINT...G. TP SCH ×2 (08:55→18:40)
[2018-12-18] MEDS: CARBIDOPA/LEVODOPA 25/100 TAB PO SCH ×3 (08:55→22:02)
--- NOTE | 2018-12-18 08:55 | NUR ---
patient up in bed, tolerated half of breakfast, refused any stool softeners, changed sacrum on buttock and repositioned her. call light in reach,
[2018-12-18] MEDS: HYDROCODONE/APAP 10MG-325MG TAB PO PRN ×3 (11:50→20:38)
[2018-12-18] MEDS: CHLORASEPTIC SPRAY 177 ML BTL MM SCH ×2 (12:00→18:40)
[2018-12-18] MEDS: CHLORHEXIDINE GLUCONATE 0.12% SOLN 473 ML BTL MT SCH ×2 (12:00→18:40)
--- NOTE | 2018-12-18 14:00 | NUR ---
PT GOES TO [facility] [address]ON [phone], JANNET SIGNED OFF WITH SOME MOUTH RINSE, ON IV ABX, ASKED FOR REFERRAL TO BE ABLE TO RE-INITIATE SNF.
--- NOTE | 2018-12-18 14:51 | NUR ---
SPOKE WITH DR GARCIA, PT CAN RETURN TO SNF TOMORROW, WILL FAX CLINICALS TO INITIATE THE PROCESS.
--- NOTE | 2018-12-18 15:55 | NUR ---
Nutrition Screen Note RD Recommendation for Physician: -Continue diet as ordered Plan of Care: RD following, monitoring for tolerance and adequacy Nutrition reason for involvement: Diagnosis Primary Diagnose(s): 1. Failure to thrive with malnutrition and dehydration. 2. Severe gingivitis and poor dentition causing severe mouth pain. PMH: coronary artery disease, hypertension, hyperlipidemia, CHF, peripheral vascular disease, Parkinson disease, dysarthria, end-stage renal disease, on dialysis Ht: 60in Wt: 188.5lb BMI: n/a IBW: 88lb (with bilateral BKA) RD Assessment: (12/18) Chart reviewed. Labs and meds reviewed. 78yo F, who was admitted for poor dentition. Visited pt in the room. Pt is a poor historian. No sign of muscle and fat loss noted upon observation. No pressure wound noted by wound care. Per RN, pt tolerated current chopped diet with 50% intake. No GI complains reported. Plan to return to SNF tomorrow. Current Diet: renal diabetic diet (chopped) Malnutrition Evaluation (12/18) Unable to evaluate. Pt is a poor historian. Diet Education Needs Assessment: Diet education not indicated. Nutrition Care Level: low Signed: Divine Zurita, MS, RD, LD
--- NOTE | 2018-12-18 18:49 | NUR ---
dressing changed on buttock, not in nay distress, call light in reach
--- NOTE | 2018-12-18 20:05 | NUR ---
PCT NOTIFIED THIS RN OF LOW BLOOD SUGAR. PATIENT AAOX2-3, GIVEN CUP OF APPLE JUICE WITH TWO PACKETS OF SUGAR. WILL REASSESS BLOOD SUGAR IN 15-30 MIN. PATIENT STABLE AT THIS TIME. WILL CONTINUE TO MONITOR.
--- NOTE | 2018-12-18 20:36 | NUR ---
BLOOD SUGAR NOW 72, PATIENT ASYMPTOMATIC. REFUSING SNACK AT THIS TIME. WILL GIVE MORE JUICE AND SUGAR PACKETS, AND CONTINUE TO MONITOR BLOOD SUGAR CLOSELY. PRN PAIN MEDICATION GIVEN FOR PAIN TO 10/10 BUTTOCK.
[2018-12-18] MEDS ORDERED: ATORVASTATIN 40 MG TAB PO SCH (21:00)
[2018-12-18] MEDS ORDERED: INSULIN GLARGINE 100 UNITS/ML VIAL SQ SCH (21:00)
[2018-12-18] MEDS ORDERED: ATORVASTATIN 20 MG TAB PO SCH (21:00)
[2018-12-19] VITALS: BP 147/63
[2018-12-19] MEDS: HYDROCODONE/APAP 10MG-325MG TAB PO PRN ×3 (00:35→14:45)
[2018-12-19] MEDS: LACTULOSE SYRUP 20 GM/30 ML UDC PO SCH ×5 (01:07→17:48)
--- NOTE | 2018-12-19 01:12 | NUR ---
REPOSITIONED PATIENT FROM BACK TO LEFT SIDE. PATIENT REFUSING TURNS TO RIGHT SIDE DUE TO PAIN ON RIGHT BUTTOCK FROM PRESSURE ULCERS.
--- NOTE | 2018-12-19 04:51 | Discharge Summary ---
HOSPITAL COURSE: The patient is a 78-year-old female with past medical history positive for end-stage renal disease, on dialysis; hypertension; history of diabetes; history of coronary artery disease, status post CABG; history of congestive heart failure; history of Parkinson disease; history of peripheral vascular disease with bilateral below-knee amputation. The patient was at [facility]. She was having poor appetite. She was diagnosed with gingivitis. She was admitted from the [facility], which is [facility]. She was treated with IV clindamycin. The patient is going back to [facility] tomorrow. PHYSICAL EXAMINATION: HEART: Showed regular rhythm. Normal S1 and S2 sound. LUNGS: Clear bilaterally. ABDOMEN: Soft. EXTREMITIES: Showed bilateral below-knee amputation. VITAL SIGNS: Blood pressure 130/60, temperature 97.0, heart rate 72 per minute, respiratory rate 20 per minute, and oxygen saturation 96%. LABORATORY STUDIES: On the BMP; sodium 137, potassium 4.4, chloride 94, CO2 of 32, BUN 56, creatinine 5.90, glucose 207. On the CBC; white count 6.82, hemoglobin 10.2, hematocrit 33.5, and platelet count 149,000. AST 8, ALT 6, total bilirubin 0.2, alkaline phosphatase 85. IMPRESSION: 1. Gingivitis. 2. End-stage renal disease, on dialysis. 3. Uncontrolled diabetes mellitus type 2 with end-stage renal disease. 4. Hypertension with hypertensive nephropathy and hypertensive heart disease. 5. Parkinson's disease. 6. Anemia of chronic disease secondary to end-stage renal disease. 7. Obesity. PLAN OF TREATMENT: Continue clindamycin q.8 hours. Continue with dialysis 3 times a week. Sinemet 1 tablet three times a day, lactulose 20 g q.6 hours as needed, clonidine 0.1 mg three times a day, [place] 1 tablet q.4 hours as needed for severe pain, sevelamer 800 mg with meals, twice a day as needed. I am going to increase Lantus to 10 units at bedtime because the blood sugar is still uncontrolled. Continue Balsam [place]/castor oil to affected area topically 60 g twice a day. Continue monitoring blood sugar before meals and at bedtime. Continue diabetic and renal diet. The patient is going to be transferred back to [facility] tomorrow. MD JENISE Guevara/CHASTITY /[id number]
--- NOTE | 2018-12-19 05:26 | Discharge Summary ---
ADDENDUM: We are going to add Lipitor 40 mg daily diabetes, history of hypertension, history of coronary artery disease, so she has an indication for statin. MD JENISE Guevara/CHASTITY /[id number]
[2018-12-19] MEDS: CLINDAMYCIN 600MG / 50ML 50 ML IV SCH ×2 (05:34→14:43)
[2018-12-19] MEDS: CHLORHEXIDINE GLUCONATE 0.12% SOLN 473 ML BTL MT SCH ×3 (05:34→17:48)
[2018-12-19 06:06] LABS: ANION GAP 14.4 mmol/L (8-16); CALCIUM 8.7 mg/dL (8.4-10.2); CREATININE, SERUM 4.77 mg/dL (0.57-1.11); POTASSIUM 4.4 mmol/L (3.5-5.1)
--- NOTE | 2018-12-19 07:10 | NUR ---
PATIENT AWAKE AND IN STABLE CONDITION WITH NO S/S OF RESPIRATORY DISTRESS. PATIENT C/O 10/10 BUTTOCK PAIN - RECENTLY RECEIVED PAIN MEDICATION. PATIENT SET TO HAVE DIALYSIS TODAY. CALL LIGHT IS WITHIN REACH, PATIENT INSTRUCTED TO CALL FOR ASSISTANCE NEEDED.
[2018-12-19 07:45] VITALS: BP 139/59
[2018-12-19] MEDS: CHLORASEPTIC SPRAY 177 ML BTL MM SCH ×2 (08:50→17:00)
[2018-12-19] MEDS: CLONIDINE HCL 0.2 MG TAB PO SCH ×2 (08:51→14:45)
[2018-12-19] MEDS: BALSAM PERU/CASTOR OIL 60 GM OINT...G. TP SCH ×2 (08:51→16:36)
[2018-12-19] MEDS: CARBIDOPA/LEVODOPA 25/100 TAB PO SCH ×2 (08:52→14:44)
[2018-12-19] MEDS: SEVELAMER CARBONATE 800 MG TAB PO SCH ×3 (08:52→18:00)
[2018-12-19] MEDS: INSULIN LISPRO 100 UNIT/1 ML 3ML VIAL SQ SCH ×3 (09:09→16:30)
[2018-12-19 09:40] VITALS: BP 139/59
[2018-12-19] MEDS ORDERED: ALBUMIN 25% 12.5GM 0.25 GM/ML BTL IV PRN (09:45)
[2018-12-19 10:40] VITALS: BP 139/59
[2018-12-19 11:22] VITALS: BP 118/58
--- NOTE | 2018-12-19 14:07 | NUR ---
CONTACTED [facility] TO SEE IF OBTAINED AUTH, GAVE NOTIFICATION OF DISCHARGE, WILL RETURN CALL WITH ROOM.
--- NOTE | 2018-12-19 14:07 | NUR ---
COMPLETED RTF AND TOOK TO NURSES STATION TO COMPLETE TRANSFER.
--- NOTE | 2018-12-19 14:39 | NUR ---
PT ACCEPTED TO ROOM [address] UNDER DR EDVIN SANFORD AT [address] IN [facility] [id number], CALL REPORT TO [phone], COMPLETED RTF AND GAVE TO NURSE TO CALL TRANSPORT AND DISCHARGE PT.
[2018-12-19] MEDS: POLYETHYLENE GLYCOL 3350 17 GM PACK PO SCH (14:43)
--- NOTE | 2018-12-19 15:18 | NUR ---
COURTESY CALL PLACED OUT TO DR. ROSA REGARDING PATIENT BEING DISCHARGE- AWAITING CALLBACK
[2018-12-19 15:30] VITALS: BP 145/65
--- NOTE | 2018-12-19 16:44 | NUR ---
REPORT CALLED TO [facility], SPOKE WITH DIVINA GONSALEZ AT 1639. PATIENT GOING TO ROOM 213A.
--- NOTE | 2018-12-19 18:46 | Progress Note ---
DATE: SUBJECTIVE: Ms. Yeager is doing better. No new complaints. She is still a bit confused. REVIEW OF SYSTEMS: Nothing new per nursing team. PHYSICAL EXAMINATION: GENERAL: She is currently alert, does not seem to be in acute distress. VITAL SIGNS: Stable. Afebrile. HEENT: Normocephalic, not icteric. Oral mucosa seems to be better. NECK: Supple. No JVD. No lymphadenopathy. No thyromegaly. The patient is obese. HEART: S1, S2. No S3, S4 or murmur. ABDOMEN: Soft. IMPRESSION: 1. Gingivitis better can change to oral clindamycin 150 mg p.o. t.i.d. for 5 days. 2. End-stage renal disease. 3. Obesity. 4. Diabetes mellitus. 5. Hypertension. 6. Parkinson disease per Internal Medicine. Discharge plan noted and agreed with. Thank you for asking me to see this patient. Please call with any questions. MD VICTOR M Starks/CHASTITY /[id number]
--- NOTE | 2018-12-19 18:50 | NUR ---
PATIENT DISCHARGE HOME- PATIENT OFF THE UNIT AT 1846 PER STRETCHER BY TWO PERSON EMS SERVICE. PATIENT IN STABLE CONDITION WITH NO S/S OF RESPIRATORY DISTRESS. NO PAIN VOICED. IV INTACT TO RIGHT WRIST 22G IS INTACT AND INTACT. TRANSFER PACKET GIVEN TO EMS SERVICE. ALL PERSONAL ITEMS TAKEN WITH THE PATIENT AND EMS SERVICE.
--- NOTE | 2018-12-19 22:37 | Discharge Summary ---
HOSPITAL COURSE: The patient is a 78-year-old female with past medical history positive for diabetes; end-stage renal disease, on dialysis; peripheral vascular disease, status post bilateral below-knee amputation; hypercholesterolemia; came here with gingivitis. She was started on IV antibiotics, which is clindamycin by Dr. Fuentes. Dr. Jose Antonio Fernandez saw her, who is an Ear, Nose, Throat specialist. The patient is going to be transferred back to [facility]. PHYSICAL EXAMINATION: VITAL SIGNS: Blood pressure is 118/58, temperature 95.8, heart rate 66 per minute, respiratory rate 17 per minute, oxygen saturation 99%. HEART: Showed regular rhythm. Normal S1 and S2 sound. LUNGS: Clear bilaterally. ABDOMEN: Soft. EXTREMITIES: Show status post bilateral knee amputation. LABORATORY DATA: On the BMP; sodium 135, potassium 4.4, chloride 96, CO2 of 29, BUN 30, creatinine 4.77, glucose 179. On CBC; white blood count 6.82, hemoglobin 10.2, hematocrit 33.5, and platelet count 149,000. AST 8, ALT 6, total bilirubin 0.2, alkaline phosphatase 85. FINAL IMPRESSION: 1. Gingivitis. 2. End-stage renal disease, on dialysis. 3. Uncontrolled diabetes mellitus type 2 with end-stage renal disease. 4. Peripheral vascular disease, status post bilateral below-knee amputation. PLAN OF TREATMENT: Continue clindamycin q.8 hours x7 days. Continue with Sinemet 1 tablet three times a day, lactulose 20 g q.6 hours as needed for constipation, sevelamer 800 mg before meals, Lipitor 40 mg daily, clonidine 0.1 mg three times a day, [place] 1 tablet q.4 hours as needed for pain, Balsam [place]/castor oil twice a day, albumin 25 g as needed, 20 mL twice a day. Continue monitoring blood sugar before meals and at bedtime. Continue diabetic renal diet. Continue chlorhexidine gluconate 5 mL q.6 hours when awake for mouth pain. Continue with Lantus 10 units at bedtime. Continue monitoring blood sugar very carefully. The patient is going back to [facility] today. MD JENISE Guevara/CHASTITY /[id number]
== END 2018-12-19 18:46 | DRG 157 ==
LOC: MED/SURG3 12-16 19:05
PROVIDERS: ADMIT Internal Medicine; ATTEND Internal Medicine
PROC: 5A1D70Z Performance of Urinary Filtration, Intermittent, Less than 6 Hours Per Day (ICD-10-PCS; 2018-12-17)
PROC: 0CJS8ZZ Inspection of Larynx, Via Natural or Artificial Opening Endoscopic (ICD-10-PCS; principal; 2018-12-19)
PROC: 5A1D70Z Performance of Urinary Filtration, Intermittent, Less than 6 Hours Per Day (ICD-10-PCS; 2018-12-19)
DX: K05.10 Chronic gingivitis, plaque induced (principal); G93.41 Metabolic encephalopathy; N18.6 End stage renal disease; I13.2 Hypertensive heart and chronic kidney disease with heart failure and with stage 5 chronic kidney disease, or end stage renal disease; E46 Unspecified protein-calorie malnutrition; R62.7 Adult failure to thrive; E11.65 Type 2 diabetes mellitus with hyperglycemia; K12.1 Other forms of stomatitis; E86.0 Dehydration; M35.00 Sjogren syndrome, unspecified; K00.7 Teething syndrome; I25.10 Atherosclerotic heart disease of native coronary artery without angina pectoris; E78.5 Hyperlipidemia, unspecified; I50.9 Heart failure, unspecified; Z99.2 Dependence on renal dialysis; I73.9 Peripheral vascular disease, unspecified; G20 Parkinson's disease; Z93.3 Colostomy status; Z87.891 Personal history of nicotine dependence; Z89.512 Acquired absence of left leg below knee; Z89.511 Acquired absence of right leg below knee; Z88.8 Allergy status to other drugs, medicaments and biological substances; Z88.5 Allergy status to narcotic agent; E11.22 Type 2 diabetes mellitus with diabetic chronic kidney disease; F32.9 Major depressive disorder, single episode, unspecified; K21.9 Gastro-esophageal reflux disease without esophagitis; G89.4 Chronic pain syndrome; Z86.718 Personal history of other venous thrombosis and embolism; Z86.711 Personal history of pulmonary embolism; G40.909 Epilepsy, unspecified, not intractable, without status epilepticus; I69.322 Dysarthria following cerebral infarction; D63.1 Anemia in chronic kidney disease
CPT/HCPCS: 36415; 80048; 80053; 82948; 85025; 86704; 86706; 87340; 90962; J1815; J7030; J7042